=== PATIENT | female | born 1940 | race Caucasian/White ===

== ENCOUNTER 2017-09-01 07:40 | Day surgery (SDC) | payer OTHER ==
[~2017-09-01] VITALS: Ht 162.6 cm; Wt 85.3 kg
[~2017-09-01 07:40] MED LIST: /WARF25TA; /WARF2TA PO; ACETAMINOPHEN 325 MG TAB PO PRN; ALLE25CA; AMLO5TAB2 PO; ASPIRIN PO; BENA25CA PO; BISAC5TA PO; BSS with VANC/TOB/EPI for EYE CASES IR ONE; BYST5TAB2 PO; CALCTAB93 PO; CLIN150C PO; COSO1SOL3 OU; CYCLOPENTOLATE 2% OPHTH SOLN 2ML BTL OS ONE; DIGO0.12 PO; DILTIAZEM PO; DORZOLAMIDE TIMOLOL OU; DOXAZOSIN PO; HYDR25TA6; HYDROCHLORTHIAZIDE; JANT1TAB PO; KEFL500C; LASI40TA PO; LIDOCAINE 3.5 % 1ML OPHTH TOPICAL GEL OU ONE; LISI40TA; LUMI0.01 OU; MAG400TA PO; METO1TAB32 PO; METOPROLOL PO; MOM30SS PO; OFLOXACIN 0.3 % (OCUFLOX) OPTH SOL 5ML OS ONE; PERC7.5T12 PO; PHENYLEPHRINE 2.5% OPHTH SOL 2ML OS ONE; PROPARACAINE 0.5% OPHTH SOL 15ML OS PRN; SENN8.6T5; SENN8.6T7 PO; SPIR25TA2 PO; TENO25TA; TORS10TA3 PO; TORS20TA2 PO; TRIA1OI EXT; TROPICAMIDE 1% OPHTH SOLN 2ML OS ONE; TYLE325T5 PO; VICO5TAB; VICODIN; [UNRECOGNIZED DRUG - MIXTURE] PO
[2017-09-01] MEDS ORDERED: LR 1,000 ML IV ONE (08:00)
[2017-09-01] MEDS ORDERED: LIDOCAINE 1% SDV 5 ML VIAL As Ordered ONE (08:24)
[2017-09-01] MEDS ORDERED: POVIDONE-IODINE 5% OPHTH PREP SOL 30ML As Ordered ONE (08:24)
[2017-09-01] MEDS ORDERED: ACETYLCHOLINE OPHTH SOLN 1% 2ML (MIOCHOL-E) As Ordered ONE (08:24)
[2017-09-01] MEDS ORDERED: CEFUROXIME 1MG/0.1ML INTRACAMERAL INJ As Ordered ONE (08:24)
[2017-09-01] MEDS ORDERED: HEALON DUET (HEALON 10MG/ML 0.55ML & HEALON ENDOCOAT 30MG/ML 0.85ML) As Ordered ONE (08:25)
[2017-09-01] MEDS ORDERED: OMEP40CA2 PO (08:28)
[2017-09-01 08:47] LABS: INR 1.23
[2017-09-01] MEDS ORDERED: MIDAZOLAM INJ 2 MG/2 ML VIAL (J2250) As Ordered ONE (08:49)
[2017-09-01] MEDS ORDERED: fentaNYL 100 MCG/2 ML INJECTION (J3010) As Ordered ONE (08:49)
[2017-09-01 09:20] VITALS: BP 141/78
[2017-09-01] MEDS ORDERED: AcetaZOLAMIDE 500 MG ER CAP PO ONE (09:30)
[2017-09-01] MEDS ORDERED: ONDANSETRON 4MG/2ML VIAL (J2405) IV PRN (09:30)
[2017-09-01] MEDS ORDERED: LR 1,000 ML IV SCH (09:30)
[2017-09-01] MEDS ORDERED: KETOROLAC 0.5% OPHTH SOLN OS ONE (09:30)
[2017-09-01] MEDS ORDERED: TRIMETHOBENZAMIDE 300 MG CAP PO PRN (09:30)
--- NOTE | 2017-09-01 16:42 | RO ---
DATE OF PROCEDURE: 09/01/2017 PREPROCEDURE DIAGNOSIS: Glaucoma, miosis and cataract left eye. POSTPROCEDURE DIAGNOSIS: Glaucoma, miosis and cataract left eye. PROCEDURE: Phacoemulsification with intraocular lens implantation, placement of Malyugin ring, endocyclophotocoagulation and placement of the Glaukos iStent, GTS 100L Intraocular lens used was Hoya power 18 diopters. SURGEON: Dr. Ayush Marr REPAIRER HAIRSPRING: None. ANESTHESIA: COMPLICATIONS: None. DESCRIPTION OF PROCEDURE: The patient was brought to the operating room, laid in supine position, and the eye was prepped and draped in a sterile fashion for ophthalmic surgery and a lid speculum was placed. A sideport incision was made and EndoCoat was injected into the anterior chamber. This was followed by a temporal clear corneal incision with a 2.5 mm keratome, followed by insertion of the 7 mm Malyugin ring to dilate the pupil. After this was done, capsulorrhexis was done followed by hydrodissection. Phacoemulsification was done in a divided and conquer method within the capsular bag followed by aspiration of the cortex. Healon was then placed in the capsular bag and intraocular lens inserted. Healon was then placed in the ciliary sulcus to visualize the ciliary processes on the video screen with the help of the EndoProbe. Endocyclophotocoagulation was then carried out for 280 degrees at 0.25 milliwatts with good results noted on the video screen. Healon was then placed in the anterior chamber to visualize the inferonasal trabecular meshwork. With the patient's head turned away from the surgeon under high mag, with the help of the Gonio lens, the Glaukos iStent was then inserted with good blood reflux so as to obliterate the view, but it seemed like it was in good position. Excess viscoelastic was aspirated with the note the patient has a history of being on Coumadin. Wound was hydrated. Moxifloxacin was given intracamerally. Lid speculum removed. The patient was returned to the recovery room in stable condition. Addendum: After the placement of the intraocular lens, the Malyugin ring was removed.
== END 2017-09-01 09:45 | disposition home or self-care (01) ==
LOC: M SDC 07:40
PROVIDERS: ATTEND Ophthalmology
DX: H25.9 Unspecified age-related cataract (principal); H57.03 Miosis; H40.812 Glaucoma with increased episcleral venous pressure, left eye; I48.91 Unspecified atrial fibrillation; I10 Essential (primary) hypertension; G47.30 Sleep apnea, unspecified; Z79.01 Long term (current) use of anticoagulants; Z79.899 Other long term (current) drug therapy
CPT/HCPCS: 36415; 66183; 66711; 66982; 85610; C1783; J2250; J3010; V2632

== ENCOUNTER 2018-12-03 15:26 | Emergency (ER) | payer MEDICARE, OTHER ==
[~2018-12-03] VITALS: Ht 160 cm; Wt 91.8 kg
[~2018-12-03 15:26] MED LIST changes: -ACETAMINOPHEN 325 MG TAB PO PRN; -AMLO5TAB2 PO; +AMLO5TAB6 PO; -BSS with VANC/TOB/EPI for EYE CASES IR ONE; -CYCLOPENTOLATE 2% OPHTH SOLN 2ML BTL OS ONE; -LIDOCAINE 3.5 % 1ML OPHTH TOPICAL GEL OU ONE; -OFLOXACIN 0.3 % (OCUFLOX) OPTH SOL 5ML OS ONE; +OMEP40CA2 PO; -PHENYLEPHRINE 2.5% OPHTH SOL 2ML OS ONE; -PROPARACAINE 0.5% OPHTH SOL 15ML OS PRN; +SPIR-10 PO; -SPIR25TA2 PO; -TROPICAMIDE 1% OPHTH SOLN 2ML OS ONE
[2018-12-03] MEDS ORDERED: ACUL0.5S OS (15:51)
[2018-12-03] MEDS ORDERED: OMEP40CA2 PO (15:51)
[2018-12-03] MEDS ORDERED: POTA1TAB23 PO (15:51)
[2018-12-03] MEDS ORDERED: VITA2000 PO (15:51)
[2018-12-03] MEDS ORDERED: METO1TAB87 PO (15:51)
[2018-12-03] MEDS ORDERED: LEVO25TA5 PO (15:51)
[2018-12-03] MEDS ORDERED: XARE15TA PO (15:51)
[2018-12-03] MEDS ORDERED: COSO1SOL2 (15:51)
[2018-12-03] MEDS ORDERED: TORS10TA3 PO (15:51)
[2018-12-03 16:07] LABS: BASO # 0.1 10^3/uL (0.0-0.2); BASO % 0.6 % (0.0-1.0); EOS # 0.2 10^3/uL (0.0-0.50); HEMATOCRIT 41.6 % (36.0-47.0); HEMOGLOBIN 13.7 g/dl (12.0-15.5); LYMPH # 1.5 10^3/uL (1.5-4.5); LYMPH % 16.6 % (24.0-44.0); MEAN CORPUSCULAR HEMOGLOBIN 31.5 pg (27.0-33.0); MEAN CORPUSCULAR HGB CONC 32.9 g/dl (32.0-36.5); MEAN CORPUSCULAR VOLUME 95.6 fl (80.0-96.0); MONO # 0.7 10^3/uL (0.0-0.8); MONO % 8.2 % (0.0-5.0); NEUTROPHILS # 6.4 10^3/uL (1.8-7.7); NEUTROPHILS % 72.3 % (36.0-66.0); PLATELET COUNT, AUTOMATED 224 10^3/uL (150-450); RED BLOOD COUNT 4.35 10^6/uL (4.00-5.40); WHITE BLOOD COUNT 8.9 10^3/uL (4.0-10.0)
[2018-12-03 16:14] LABS: INR 1.11; PROTHROMBIN TIME 14.5 SECONDS (12.1-14.4)
--- NOTE | 2018-12-03 16:15 | REP ---
Chest one-view HISTORY: chest pain Comparison: 10/15/2015 The lungs are clear. The heart is normal in size. The pulmonary vasculature is normal in appearance. Impression: No acute disease. Electronically Signed by Shashi Mares MD 12/03/2018 04:06 P
[2018-12-03 16:28] LABS: BLOOD UREA NITROGEN 25 MG/DL (7-18); CALCIUM LEVEL 9.3 MG/DL (8.8-10.2); CARBON DIOXIDE LEVEL 21 MEQ/L (21-32); CHLORIDE LEVEL 102 MEQ/L (98-107); CPK CREATINE PHOSPHOKINASE 146 U/L (26-192); CREATININE FOR GFR 1.51 MG/DL (0.55-1.30); GLOMERULAR FILTRATION RATE 35.4 (>39); GLUCOSE, FASTING 95 MG/DL (70-100); MB/CK RELATIVE INDEX 1.03 (< OR =4); NT-PRO BNP 9777 PG/ML (<450); POTASSIUM SERUM 4.3 MEQ/L (3.5-5.1); SODIUM LEVEL 134 MEQ/L (136-145); TROPONIN I < 0.02 NG/ML (< 0.10)
[2018-12-03] MEDS ORDERED: NS 500 ML IV ONE (16:45)
[2018-12-03 17:39] LABS: INFLUENZA A AMPLIFICATION NEGATIVE (NEGATIVE); INFLUENZA B AMPLIFICATION NEGATIVE (NEGATIVE)
[2018-12-03 20:31] LABS: ABG BASE EXCESS -2.4 (-2.0-2.0); ABG HCO3 21.2 MEQ/L (22.0-26.0); ABG O2 SATURATION 97.8 % (95.0-99.0); ABG PARTIAL PRESSURE CO2 33.3 mmHg (35.0-45.0); ABG PARTIAL PRESSURE O2 97.7 mmHg (75.0-100.0); ABG STANDARD HCO3 22.5 MEQ/L (22.0-26.0); ABG TOTAL CO2 22.2 MEQ/L (23.0-31.0); ABG pH (ARTERIAL) 7.422 UNITS (7.350-7.450)
[2018-12-03] MEDS ORDERED: ATIV1TAB10 PO ×2 (20:55→21:00)
[2018-12-03 21:31] VITALS: BP 140/73
--- NOTE | 2018-12-04 13:57 | ECGEPIP ---
Stationary ECG Study [facility] - ED Test Date: 2018-12-03 Pat Name: AYAN KOVACS Department: Room: - Gender: F Internal Control Specialist: TC : 1940 Requested By: YVES Aden Order Number: [id number] Reading MD: Jackeline Gilmore Measurements Intervals [place] Rate: 73 P: [place]: 0 QRS: -21 QRSD: 146 T: 63 QT: 413 QTc: 456 Interpretive Statements ATRIAL FIBRILLATION LEFT BUNDLE BRANCH BLOCK Electronically Signed On 12-04-2018 13:56:39 EST by Jackeline Gilmore
== END 2018-12-03 21:50 | disposition home or self-care (01) ==
LOC: M ED 15:26 → CANBEDREQ 21:05 → M ED 21:50
DX: I50.9 Heart failure, unspecified (principal); R06.02 Shortness of breath; I48.91 Unspecified atrial fibrillation; I44.7 Left bundle-branch block, unspecified; G47.30 Sleep apnea, unspecified; M19.90 Unspecified osteoarthritis, unspecified site; Z79.899 Other long term (current) drug therapy

== ENCOUNTER → 2019-04-30 | Outpatient (CLI) | payer MEDICARE ==
[~2019-04-30] MED LIST changes: -/WARF25TA; -/WARF2TA PO; +ACUL0.5S OS; +ATIV1TAB10 PO; +COSO1SOL2; +COUM1TAB16 PO; +COUM1TAB18; +LEVO25TA5 PO; +METO1TAB87 PO; +POTA1TAB23 PO; +VITA2000 PO; +XARE15TA PO
[2019-04-30 14:14] LABS: CALCIUM LEVEL 9.8 MG/DL (8.8-10.2); CREATININE FOR GFR 1.87 MG/DL (0.55-1.30); GLOMERULAR FILTRATION RATE 27.6 (>39); POTASSIUM SERUM 4.4 MEQ/L (3.5-5.1)
== END ==
LOC: M SMT 11:49
PROVIDERS: ATTEND Internal Medicine Cardiovascular Disease
DX: I10 Essential (primary) hypertension (principal); I48.2 Chronic atrial fibrillation

== ENCOUNTER 2019-06-03 10:51 | Inpatient (IN) | payer MEDICARE ==
[~2019-06-03] VITALS: Ht 160 cm; Wt 83.0 kg
[~2019-06-03 10:51] MED LIST changes: -COSO1SOL2; +COSO1SOL2 OU
[2019-06-03] MEDS ORDERED: HYDR10TAB PO (11:15)
[2019-06-03 12:48] LABS: BASO # 0.1 10^3/uL (0.0-0.2); BASO % 0.8 % (0.0-1.0); EOS % 8.4 % (0.0-3.0); HEMATOCRIT 43.8 % (36.0-47.0); HEMOGLOBIN 14.9 g/dl (12.0-15.5); LYMPH # 0.9 10^3/uL (1.5-4.5); LYMPH % 7.2 % (24.0-44.0); MEAN CORPUSCULAR HEMOGLOBIN 32.3 pg (27.0-33.0); MEAN CORPUSCULAR VOLUME 94.8 fl (80.0-96.0); MONO % 8.4 % (0.0-5.0); NEUTROPHILS # 9.1 10^3/uL (1.8-7.7); NEUTROPHILS % 73.9 % (36.0-66.0); PLATELET COUNT, AUTOMATED 357 10^3/uL (150-450); RED BLOOD COUNT 4.62 10^6/uL (4.00-5.40); WHITE BLOOD COUNT 12.3 10^3/uL (4.0-10.0)
[2019-06-03] MEDS ORDERED: METO1TAB87 PO (12:48)
[2019-06-03] MEDS ORDERED: TORS10TA3 PO (12:48)
[2019-06-03 13:21] LABS: CREATININE,RANDOM URINE 44.4 MG/DL
[2019-06-03 14:12] LABS: ALBUMIN 3.1 GM/DL (3.2-5.2); BILIRUBIN,DIRECT 0.4 MG/DL (0.0-0.2); BILIRUBIN,TOTAL 1.1 MG/DL (0.2-1.0); CREATININE FOR GFR 1.85 MG/DL (0.55-1.30); FREE T4 1.58 NG/DL (0.76-1.46); THYROID STIMULATING HORMONE 2.15 uIU/ML (0.358-3.740); TOTAL PROTEIN 7.3 GM/DL (6.4-8.2)
[2019-06-03 14:52] LABS: PTH INTACT 9.8 PG/ML (18.5-88.0); TOTAL 25(OH) VITAMIN D 51.4 NG/ML (30.0-100.0)
--- NOTE | 2019-06-03 19:26 | ECGEPIP ---
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
--- NOTE | 2019-06-03 19:33 | ECGEPIP ---
[facility] - ED Test Date: 2019-06-03 Pat Name: AYAN KOVACS Department: Room: - Gender: Female Head Of Operation And Logistics: : 1940 Requested By: KATHERYN LEES Order Number: [id number] Reading MD: Jackeline Gilmore Measurements Intervals [place] Rate: 74 P: [place]: -1 QRS: QRSD: 168 T: 114 QT: 434 QTc: 482 Interpretive Statements ATRIAL FIBRILLATION MARKED LEFT AXIS DEVIATION LEFT BUNDLE BRANCH BLOCK SIMILAR 11:15 Electronically Signed on 06-03-2019 19:32:50 EDT by Jackeline Gilmore
[2019-06-03] MEDS: METOPROLOL TART 25 MG TABLET PO SCH (21:00)
[2019-06-03] MEDS ORDERED: NS 600 ML IV SCH (23:30)
--- NOTE | 2019-06-04 01:39 | HPEPDOC ---
General Date of Admission Jun 03, 2019 at 23:22 Date of Service: Jun 04, 2019 Chief Complaint The patient is a 78-year-old female admitted with a reason for visit of Hypercalcemia. History of Present Illness 78-year-old female with past medical history of hypertension, hypothyroidism, atrial fibrillation on xarelto, osteoporosis, and diastolic congestive heart failure was sent from Dr. Cordova's office due to elevated serum calcium and low serum sodium levels. The patient also endorses feeling generalized weakness and malaise over the last 1 week. She denies any significant weight loss, but does e ndorse a decreased appetite. She denies any complaints of fevers, chills, chest pain, palpitations, abdominal pain, or any nausea/vomiting/diarrhea. She reports starting hydralazine as a new medication one month ago, but otherwise denies any other changes to her medications. Home Medications Scheduled Cholecalciferol (Vitamin D3) (Vitamin D3) 2,000 Unit Cap, 1 CAP PO DAILY, (Reported) Dorzolamide/Timolol/Pf (Cosopt Pf Eye Drops) 1 Belkis Belkis, 1 DROP OU BID, (Reported) Hydralazine HCl (Hydralazine HCl) 10 Mg Tablet, 1 TAB PO TID, (Reported) Levothyroxine Sodium (Levothyroxine Sodium) 25 Mcg Tab, 1 TAB PO DAILY, (Reported) Metoprolol Tartrate (Metoprolol Tartrate) 25 Mg Tab, 50 MG PO QAM, (Reported) Metoprolol Tartrate (Metoprolol Tartrate) 25 Mg Tablet, 25 MG PO QPM, (Reported) Omeprazole (Omeprazole) 40 Mg Cap, 40 MG PO DAILY, (Reported) Potassium Chloride (Potassium Chloride) 10 Meq Tab, 10 MEQ PO BID, (Reported) Rivaroxaban (Xarelto) 15 Mg Tab, 15 MG PO DAILY, (Reported) Spironolactone (Spironolactone) 25 Mg Tab, 25 MG PO DAILY, (Reported) Torsemide (Torsemide) 10 Mg Tab, 20 MG PO QAM, (Reported) Torsemide (Torsemide) 10 Mg Tablet, 10 MG PO QPM, (Reported) Allergies Coded Allergies: No Known Allergies (Unverified , 06/03/19) Past Medical History Medical History As noted in HPI. Social History * Smoker: Denies Alcohol: occationally Drugs: denies Functionally independent, lives with her . Review of Systems Other systems 10 point review of systems negative unless otherwise specified in HPI. Physical Examination General Exam: Positive: Alert, Cooperative, No Acute Distress ENT Exam: Positive: Atraumatic; Negative: Mucous membr. moist/pink (dry mucous membranes) Neck Exam: Negative: JVD Chest Exam: Positive: Diminished Heart Exam: Positive: Rate Normal, Normal S1, Normal S2 Abdomen Exam: Positive: Soft; Negative: Tenderness Extremity Exam: Negative: Tenderness, Swelling Psych Exam: Positive: Oriented x 3 Vital Signs Vital Signs Date Time Temp Pulse Resp B/P (MAP) Pulse Ox O2 Delivery O2 Flow Rate FiO2 06/04/19 00:21 88 96 06/03/19 23:01 18 169/66 (100) Room Air 06/03/19 10:52 97.7 Laboratory Data Labs 24H Laboratory Tests 2 06/03/19 12:32: Immature Granulocyte % (Auto) 1.3, White Blood Count 12.3H, Red Blood Count 4.62, Hemoglobin 14.9, Hematocrit 43.8, Mean Corpuscular Volume 94.8, Mean Corpuscular Hemoglobin 32.3, Mean Corpuscular Hemoglobin Concent 34.0, Red Cell Distribution Width 13.2, Platelet Count 357, Neutrophils (%) (Auto) 73.9H, Lymphocytes (%) (Auto) 7.2L, Monocytes (%) (Auto) 8.4H, Eosinophils (%) (Auto) 8.4H, Basophils (%) (Auto) 0.8, Neutrophils # (Auto) 9.1H, Lymphocytes # (Auto) 0.9L, Monocytes # (Auto) 1.0H, Eosinophils # (Auto) 1.0H, Basophils # (Auto) 0.1, Nucleated Red Blood Cells % (auto) 0.0, Urine Random Osmolality 254L, Urine Random Creatinine 44.4, Urine Random Sodium 38, Anion Gap 10, Glomerular F iltration Rate 28.0L, Osmolality 276L, Calcium Level 12.0H, Aspartate Amino Transf (AST/SGOT) 12, Alanine Aminotransferase (ALT/SGPT) 20, Alkaline Phosphatase 300H, Total Bilirubin 1.1H, Direct Bilirubin 0.4H, Ammonia 27, Total Protein 7.3, Albumin 3.1L, Albumin/Globulin Ratio 0.74L, 25-Hydroxy Vitamin D Total 51.4, Thyroid Stimulating Hormone (TSH) 2.150, Free Thyroxine 1.58H, Parathyroid Hormone (Intact) 9.8L CBC/BMP Laboratory Tests 06/03/19 12:32 Red Blood Count 4.62, Mean Corpuscular Volume 94.8, Mean Corpuscular Hemoglobin 32.3, Mean Corpuscular Hemoglobin Concent 34.0, Red Cell Distribution Width 13.2, Neutrophils (%) (Auto) 73.9 H, Lymphocytes (%) (Auto) 7.2 L, Monocytes (%) (Auto) 8.4 H, Eosinophils (%) (Auto) 8.4 H, Basophils (%) (Auto) 0.8, Neutrophils # (Auto) 9.1 H, Lymphocytes # (Auto) 0.9 L, Monocytes # (Auto) 1.0 H, Eosinophils # (Auto) 1.0 H, Basophils # (Auto) 0.1 Plan / VTE VTE Prophylaxis Ordered?: Yes Plan Plan Hypercalcemia, Hypovolemic Hyponatremia PTH level noted to be low, PTHrp, Vit D 1,25, and Vitamin D, 25 Hydroxy, SPEP/UPEP, Light Chain assay levels ordered--Possibly 2/2 underlying malignancy? We will order a CT of the Chest to r/o any lesions as this can certainly cause PTHrp induced hypercalcemia, and SIADH induced Hyponatremia We will order urine lytes to workup hyponatremia Diuretics held due to dehydrated appearance, Gentle IV fluid hydration ordered We will follow-up with BMP in the a.m. Chronic kidney disease stage III/IV Serum Cr at baseline Cont to monitor History of atrial fibrillation Cont Xarelto Hypertension Blood pressure medications held secondary to above History of diastolic congestive heart failure Patient appears to be clinically dehydrated, we'll hold diuretic therapy and judiciously hydrate GERD Continue PPI Hypothyroidism Continue levothyroxine DVT On Xarelto ADAMARIS SERRANO MD Jun 04, 2019 01:39
[2019-06-04] MEDS: LEVOTHYROXINE 25MCG TABLET (0.025MG) PO SCH (06:33)
[2019-06-04 07:08] LABS: HEMATOCRIT 41.4 % (36.0-47.0); HEMOGLOBIN 14.2 g/dl (12.0-15.5); MEAN CORPUSCULAR HEMOGLOBIN 32.1 pg (27.0-33.0); MEAN CORPUSCULAR HGB CONC 34.3 g/dl (32.0-36.5); MEAN CORPUSCULAR VOLUME 93.7 fl (80.0-96.0); PLATELET COUNT, AUTOMATED 380 10^3/uL (150-450); RED BLOOD COUNT 4.42 10^6/uL (4.00-5.40); WHITE BLOOD COUNT 12.7 10^3/uL (4.0-10.0)
[2019-06-04 07:34] LABS: ALBUMIN 2.9 GM/DL (3.2-5.2); CALCIUM LEVEL 11.2 MG/DL (8.8-10.2); CREATININE FOR GFR 1.59 MG/DL (0.55-1.30); GLOMERULAR FILTRATION RATE 33.3 (>39); MAGNESIUM LEVEL 2.1 MG/DL (1.8-2.4); POTASSIUM SERUM 3.9 MEQ/L (3.5-5.1); TOTAL PROTEIN 6.9 GM/DL (6.4-8.2)
[2019-06-04] MEDS: RIVAROXABAN 15 MG TAB (XARELTO) PO SCH (08:52)
[2019-06-04] MEDS: METOPROLOL TART 50 MG TAB PO SCH (08:52)
[2019-06-04] MEDS: ACETAMINOPHEN TAB 650MG DOSE (2X325MG) PO PRN (08:53)
[2019-06-04] MEDS: OMEPRAZOLE 20 MG CAP PO SCH (08:53)
[2019-06-04] MEDS: VITAMIN D 1,000 INTERNATIONAL UNITS TABLET PO SCH (08:53)
[2019-06-04] MEDS: CALCITONIN SALMON (MIACALCIN) 400INTERNATIONAL UNITS/2ML INJ (J0630) SQ SCH ×2 (09:52→20:36)
[2019-06-04] MEDS ORDERED: ZOLEDRONIC ACID 3 MG in D5W 100 ML IV ONE (10:00)
[2019-06-04 11:05] VITALS: BP 142/66
[2019-06-04 16:01] VITALS: BP 131/61
--- NOTE | 2019-06-04 18:30 | IPNPDOC ---
Date Seen The patient was seen on 06/04/19. Progress Note SUBJECTIVE: Despite ivfluids, pt's calcium remains elevated. calcitonin and zolendorate. She admits to Loss of appetite, fatigue, weakness, and back pain, but denies Nausea, vomiting, Constipation, abdominal pain, Increased thirst, frequent urination, Confusion, disorientation, difficulty thinking, Headaches, or Depression.UPEP and SPEP still pending. ionized calcium is improving. Tele unre markable. OBJECTIVE: PHYSICAL EXAMINATION: VITALS PLS SEE BELOW General Exam: Positive: Alert, Cooperative, No Acute Distress ENT Exam: Positive: Atraumatic; Negative: Mucous membr. moist/pink (dry mucous membranes) Neck Exam: Negative: JVD Chest Exam: Positive: Diminished Heart Exam: Positive: Rate Normal, Normal S1, Normal S2 Abdomen Exam: Positive: Soft; Negative: Tenderness Extremity Exam: Negative: Tenderness, Swelling Psych Exam: Positive: Oriented x 3 LABORATORY DATA, IMAGING STUDIES, MICROBIOLOGY:PLS SEE BELOW ASSESSMENT AND PLAN: Hypercalcemia, Hypovolemic Hyponatremia She admits to Loss of appetite, fatigue, weakness, and back pain, but denies Nausea, vomiting, Constipation, abdominal pain, Increased thirst, frequent urination, Confusion, disorientation, difficulty thinking, Headaches, or Depression.UPEP and SPEP still pending. ionized calcium is improving. Tele unremarkable. PTH level noted to be low, PTHrp, Vit D 1,25, and Vitamin D, 25 Hydroxy, SPEP/U PEP, Light Chain assay levels ordered--Possibly 2/2 underlying malignancy? reviewed CT of the Chest to r/o any lesions as this can certainly cause PTHrp induced hypercalcemia, and SIADH induced Hyponatremia ordered urine lytes to workup hyponatremia Diuretics held due to dehydrated appearance, Gentle IV fluid hydration ordered serial ionized calcium, bmp. Chronic kidney disease stage III/IV Serum Cr at baseline Cont to monitor History of atrial fibrillation Cont Xarelto Hypertension Blood pressure medications held secondary to above History of diastolic congestive heart failure Patient appears to be clinically dehydrated, we'll hold diuretic therapy and judiciously hydrate GERD Continue PPI Hypothyroidism Continue levothyroxine DVT On Xarelto VS, I&O, 24H, Fishbone Vital Signs/I&O Vital Signs Date Time Temp Pulse Resp B/P (MAP) Pulse Ox O2 Delivery O2 Flow Rate FiO2 06/04/19 05:06 83 95 06/04/19 05:00 18 130/71 (90) 06/03/19 23:01 Room Air 06/03/19 10:52 97.7 Laboratory Data 24H LABS Laboratory Tests 2 06/03/19 12:32: Immature Granulocyte % (Auto) 1.3, White Blood Count 12.3H, Red Blood Count 4.62, Hemoglobin 14.9, Hematocrit 43.8, Mean Corpuscular Volume 94.8, Mean Corpuscular Hemoglobin 32.3, Mean Corpuscular Hemoglobin Concent 34.0, Red Cell Distribution Width 13.2, Platelet Count 357, Neutrophils (%) (Auto) 73.9H, Lymp hocytes (%) (Auto) 7.2L, Monocytes (%) (Auto) 8.4H, Eosinophils (%) (Auto) 8.4H, Basophils (%) (Auto) 0.8, Neutrophils # (Auto) 9.1H, Lymphocytes # (Auto) 0.9L, Monocytes # (Auto) 1.0H, Eosinophils # (Auto) 1.0H, Basophils # (Auto) 0.1, Nucleated Red Blood Cells % (auto) 0.0, Urine Random Osmolality 254L, Urine Random Creatinine 44.4, Urine Random Sodium 38, Anion Gap 10, Glomerular Filtration Rate 28.0L, Osmolality 276L, Calcium Level 12.0H, Aspartate Amino Transf (AST/SGOT) 12, Alanine Aminotransferase (ALT/SGPT) 20, Alkaline Phosphatase 300H, Total Bilirubin 1.1H, Direct Bilirubin 0.4H, Ammonia 27, Total Protein 7.3, Albumin 3.1L, Albumin/Globulin Ratio 0.74L, 25-Hydroxy Vitamin D Total 51.4, Thyroid Stimulating Hormone (TSH) 2.150, Free Thyroxine 1.58H, Parathyroid Hormone (Intact) 9.8L 06/04/19 06:00: 06/04/19 06:38: Nucleated Red Blood Cells % (auto) 0.0, Anion Gap 11, Glomerular Filtration Rate 33.3L, Calcium Level 11.2H, Aspartate Amino Transf (AST/SGOT) 13, Alanine Aminotransferase (ALT/SGPT) 17, Alkaline Phosphatase 268H, Total Bilirubin 1.0, Total Protein 6.9, Albumin 2.9L, Albumin/Globulin Ratio 0.73L, Blood Urea Nitrogen 27H, Creatinine 1.59H, Sodium Level 128L, Potassium Level 3.9, Chloride Level 91L, Carbon Dioxide Level 26, Magnesium Level 2.1, Total Protein (PEP) 7.0 CBC/BMP Laboratory Tests 06/03/19 12:32 Red Blood Count 4.62, Mean Corpuscular Volume 94.8, Mean Corpuscular Hemoglobin 32.3, Mean Corpuscular Hemoglobin Concent 34.0, Red Cell Distribution Width 13.2, Neutrophils (%) (Auto) 73.9 H, Lymphocytes (%) (Auto) 7.2 L, Monocytes (%) (Auto) 8.4 H, Eosinophils (%) (Auto) 8.4 H, Basophils (%) (Auto) 0.8, Neutr ophils # (Auto) 9.1 H, Lymphocytes # (Auto) 0.9 L, Monocytes # (Auto) 1.0 H, Eosinophils # (Auto) 1.0 H, Basophils # (Auto) 0.1 06/04/19 06:38 Red Blood Count 4.42, Mean Corpuscular Volume 93.7, Mean Corpuscular Hemoglobin 32.1, Mean Corpuscular Hemoglobin Concent 34.3, Red Cell Distribution Width 13.2, Calcium Level 11.2 H, Aspartate Amino Transf (AST/SGOT) 13, Alanine Pittman otransferase (ALT/SGPT) 17, Alkaline Phosphatase 268 H, Total Bilirubin 1.0, Total Protein 6.9, Albumin 2.9 L ANDRES BURNHAM MD Jun 04, 2019 08:22
[2019-06-04 20:00] VITALS: BP 150/89
[2019-06-04] MEDS: METOPROLOL TART 25 MG TABLET PO SCH (20:33)
[2019-06-04 22:00] VITALS: BP 138/72
[2019-06-04] MEDS: ONDANSETRON 4MG/2ML VIAL (J2405) IV PRN (22:17)
[2019-06-05] VITALS: BP 136/91
[2019-06-05] MEDS: ONDANSETRON 4MG/2ML VIAL (J2405) IV PRN ×3 (03:48→19:56)
[2019-06-05 04:00] VITALS: BP 146/67
[2019-06-05 05:07] LABS: IONIZED CALCIUM 5.1 MG/DL (4.5-5.3)
[2019-06-05 06:24] LABS: HEMATOCRIT 42.7 % (36.0-47.0); HEMOGLOBIN 14.3 g/dl (12.0-15.5); MEAN CORPUSCULAR HGB CONC 33.5 g/dl (32.0-36.5); MEAN CORPUSCULAR VOLUME 95.5 fl (80.0-96.0); PLATELET COUNT, AUTOMATED 399 10^3/uL (150-450); RED BLOOD COUNT 4.47 10^6/uL (4.00-5.40); WHITE BLOOD COUNT 14.6 10^3/uL (4.0-10.0)
[2019-06-05] MEDS: LEVOTHYROXINE 25MCG TABLET (0.025MG) PO SCH (06:27)
[2019-06-05 06:51] LABS: CALCIUM LEVEL 10.6 MG/DL (8.8-10.2); CREATININE FOR GFR 1.38 MG/DL (0.55-1.30); GLOMERULAR FILTRATION RATE 39.3 (>39); POTASSIUM SERUM 3.8 MEQ/L (3.5-5.1)
[2019-06-05 08:18] VITALS: BP 135/82
[2019-06-05] MEDS: RIVAROXABAN 15 MG TAB (XARELTO) PO SCH (08:48)
[2019-06-05] MEDS: METOPROLOL TART 50 MG TAB PO SCH (08:56)
[2019-06-05] MEDS: CALCITONIN SALMON (MIACALCIN) 400INTERNATIONAL UNITS/2ML INJ (J0630) SQ SCH ×2 (08:57→21:59)
[2019-06-05] MEDS: VITAMIN D 1,000 INTERNATIONAL UNITS TABLET PO SCH (08:57)
[2019-06-05] MEDS: OMEPRAZOLE 20 MG CAP PO SCH (08:57)
--- NOTE | 2019-06-05 09:47 | REP ---
CT chest without contrast: History: Hypercalcemia. No comparison chest CT. Comparison is made with chest x-ray from December 03, 2018. Findings: Preliminary digital section housekeeper radiograph demonstrates cardiac enlargement. The lung ho are well inflated and no infiltrate is seen. There is a granulomatous calcification in the right base laterally. No significant pulmonary nodule or mass lesion is observed. There is no evidence of pleural or pericardial effusion. There are granulomatous lymph node calcifications in the hilar regions bilaterally. Vascular calcification is noted. Scattered normal sized mediastinal lymph nodes are seen. Cardiac enlargement is observed on axial images. No adrenal lesion is seen. There are two accessory splenules in the left upper quadrant. There are several calcifications in the body of the pancreas and there is peripancreatic edema and intrapancreatic ill-defined decreased density consistent with pancreatitis. The body and tail of the pancreas are unremarkable. There are calcific densities in the gallbladder consistent with stones. Impression: Cardiomegaly. Old granulomatous changes. Otherwise no active disease in the chest. Incidental note is made of abnormality in the pancreatic head with calcifications, and intrapancreatic and peripancreatic edema pattern suggestive of chronic and/or acute pancreatitis. Pancreatic protocol CT study should be considered. Electronically Signed by Bahman Campbell MD 06/05/2019 12:03 P
[2019-06-05 10:22] LABS: SODIUM, URINE 17 MEQ/L
[2019-06-05 10:26] LABS: URINE TOTAL PROTEIN 30.8 MG/DL (0-12)
[2019-06-05 11:20] LABS: OSMOLALITY URINE 327 MOSM/KG (500-800)
[2019-06-05 11:37] VITALS: BP 132/63
--- NOTE | 2019-06-05 12:37 | IPNPDOC ---
Date Seen The patient was seen on 06/05/19. Progress Note SUBJECTIVE: Calcium has normalized s/p calcitonin and zolendorate. She admits to Loss of appetite, fatigue, weakness, and back pain, but denies Nausea, vomiting, Constipation, Increased thirst, frequent urination, Confusion, disorientation, difficulty thinking, Headaches, or Depression.UPEP and SPEP still pending. ionized calcium is improving. Tele unremarkable. CT chest: granulomatous disease ? chronic pancreatitis with calcification. She c/o epigastric abd discomfortbut tolerating her diet. OBJECTIVE: PHYSICAL EXAMINATION: VITALS PLS SEE BELOW General Exam: Positive: Alert, Cooperative, No Acute Distress ENT Exam: Positive: Atraumatic; Negative: Mucous membr. moist/pink (dry mucous membranes) Neck Exam: Negative: JVD Chest Exam: Positive: Diminished Heart Exam: Positive: Rate Normal, Normal S1, Normal S2 Abdomen Exam: Positive: Soft; (+) bowel sounds. slightly tender in LUQ epigastric area. Extremity Exam: Negative: Tenderness, Swelling Psych Exam: Positive: Oriented x 3 LABORATORY DATA, IMAGING STUDIES, MICROBIOLOGY:PLS SEE BELOW ASSESSMENT AND PLAN: 78-year-old female with past medical history of hypertension, hypothyroidism, atrial fibrillation on xarelto, osteoporosis, and diastolic congestive heart failure was sent from Dr. Cordova's office due to elevated serum calcium and low serum sodium levels. The patient also endorses feeling generalized weakness and malaise over the last 1 week. She denies any significant weight loss, but does endorse a decreased appetite. She denies any complaints of fevers, chills, chest pain, palpitations, abdominal pain, or any nausea/vomiting/diarrhea. She reports starting hydralazine as a new medication one month ago, but otherwise denies any other changes to her medications. Hypercalcemia, Hypovolemic Hyponatremia She admits to Loss of appetite, fatigue, weakness, and back pain, but denies N ausea, vomiting, Constipation, abdominal pain, Increased thirst, frequent urination, Confusion, disorientation, difficulty thinking, Headaches, or Depression.UPEP and SPEP still pending. ionized calcium is improving. Tele unremarkable. PTH level noted to be low, PTHrp, Vit D 1,25, and Vitamin D, 25 Hydroxy, SPEP/UPEP, Light Chain assay levels ordered--Possibly 2/2 underlying malignancy? reviewed CT of the Chest to r/o any lesions as this can certainly cause PTHrp induced hypercalcemia, and SIADH induced Hyponatremia ordered urine lytes to workup hyponatremia Diuretics held due to dehydrated appearance, Gentle IV fluid hydration ordered serial ionized calcium, bmp. improved to normal calcium levels after calcitonin and zolendronate. Abnormal pancreas possible chronic pancreatitis if nausea, vomiting, and worsening abd pain, may need to dc dash diet and change to liquid or npo diet. Chronic kidney disease stage III/IV Serum Cr at baseline Cont to monitor History of atrial fibrillation Cont Xarelto Hypertension Blood pressure medications held secondary to above History of diastolic congestive heart failure Patient appears to be clinically dehydrated, we'll hold diuretic therapy and judiciously hydrate GERD Continue PPI Hypothyroidism Continue levothyroxine VS, I&O, 24H, Fishbone Vital Signs/I&O Vital Signs Date Time Temp Pulse Resp B/P (MAP) Pulse Ox O2 Delivery O2 Flow Rate FiO2 06/05/19 11:37 96.5 73 16 132/63 (86) 97 06/04/19 10:46 Room Air I&O- Last 24 Hours up to 6 AM 06/05/19 06:00 Intake Total 230 ml Output Total 880 ml Balance -650 ml Laboratory Data 24H LABS Laboratory Tests 2 06/04/19 18:00: Whole Blood Ionized Calcium 5.5H 06/04/19 23:55: Whole Blood Ionized Calcium 5.3 06/05/19 05:00: Whole Blood Ionized Calcium 5.1, Anion Gap 11, Glomerular Filtration Rate 39.3, Blood Urea Nitrogen 21H, Creatinine 1.38H, Sodium Level 129L, Potassium Level 3.8, Chloride Level 94L, Carbon Dioxide Level 24, Calcium Level 10.6H 06/05/19 06:00: Nucleated Red Blood Cells % (auto) 0.0 06/05/19 08:15: Urine Random Osmolality 327L, Urine Total Protein mg/dL 30.8H 06/05/19 12:11: Whole Blood Ionized Calcium 5.1 CBC/BMP Laboratory Tests 06/05/19 05:00 Calcium Level 10.6 H 06/05/19 06:00 Red Blood Count 4.47, Mean Corpuscular Volume 95.5, Mean Corpuscular Hemoglobin 32.0, Mean Corpuscular Hemoglobin Concent 33.5, Red Cell Distribution Width 13.2 ANDRES BURNHAM MD Jun 05, 2019 12:35
[2019-06-05 14:11] LABS: SODIUM 24 HOUR URINE 15 MEQ/24HR (40-220); TOTAL VOLUME, URINE 900 ML
[2019-06-05 14:32] VITALS: BP 139/65
[2019-06-05 18:50] LABS: ALBUMIN 2.8 GM/DL (3.2-5.2); BILIRUBIN,DIRECT 0.4 MG/DL (0.0-0.2); BILIRUBIN,TOTAL 0.7 MG/DL (0.2-1.0); TOTAL PROTEIN 7.3 GM/DL (6.4-8.2)
[2019-06-05 22:00] VITALS: BP 116/63
[2019-06-05] MEDS: METOPROLOL TART 25 MG TABLET PO SCH (22:10)
[2019-06-05] MEDS: ACETAMINOPHEN TAB 650MG DOSE (2X325MG) PO PRN (22:18)
[2019-06-06 00:06] LABS: FREE KAPPA LIGHT CHAINS SERUM 69.7 mg/L (3.3-19.4); FREE LAMBDA LIGHT CHAINS SERUM 74.5 mg/L (5.7-26.3); KAPPA/LAMBDA RATIO SERUM 0.94 (0.26-1.65)
[2019-06-06] MEDS: LEVOTHYROXINE 25MCG TABLET (0.025MG) PO SCH (05:42)
[2019-06-06 06:00] VITALS: BP 127/69
[2019-06-06 06:38] LABS: HEMATOCRIT 42.4 % (36.0-47.0); MEAN CORPUSCULAR HEMOGLOBIN 31.5 pg (27.0-33.0); MEAN CORPUSCULAR VOLUME 95.5 fl (80.0-96.0); PLATELET COUNT, AUTOMATED 362 10^3/uL (150-450); RED BLOOD COUNT 4.44 10^6/uL (4.00-5.40)
[2019-06-06 07:04] LABS: CALCIUM LEVEL 10.2 MG/DL (8.8-10.2); CREATININE FOR GFR 1.41 MG/DL (0.55-1.30); GLOMERULAR FILTRATION RATE 38.3 (>39); POTASSIUM SERUM 3.7 MEQ/L (3.5-5.1)
--- NOTE | 2019-06-06 08:21 | IPNPDOC ---
Date Seen The patient was seen on 06/06/19. Progress Note SUBJECTIVE: pt c/o decreased appetite, nausea without vomiting, and abd pain in luq epigastric radiating to back 3/10 achy, intermittent, unchanged by position. CT chest: granulomatous disease, and calcifications in pancreas with possible chronic/acute pancreatitis. Pt denies dyspnea, or pnd. OBJECTIVE: PHYSICAL EXAMINATION: VITALS PLS SEE BELOW General Exam: Positive: Alert, Cooperative, No Acute Distress ENT Exam: Positive: Atraumatic; Negative: Mucous membr. moist/pink (dry mucous membranes) Neck Exam: Negative: JVD Chest Exam: Positive: Diminished Heart Exam: Positive: Rate Normal, Normal S1, Normal S2 Abdomen Exam: Positive: Soft; (+) bowel sounds. slightly tender in LUQ epigastric area. Extremity Exam: Negative: Tenderness, Swelling Psych Exam: Positive: Oriented x 3 LABORATORY DATA, IMAGING STUDIES, MICROBIOLOGY:PLS SEE BELOW ASSESSMENT AND PLAN: 78-year-old female with past medical history of hypertension, hypothyroidism, atrial fibrillation on xarelto, osteoporosis, and diastolic congestive heart mani micheline was sent from Dr. Cordova's office due to elevated serum calcium and low serum sodium levels. The patient also endorses feeling generalized weakness and malaise over the last 1 week. She denies any significant weight loss, but does endorse a decreased appetite. She denies any complaints of fevers, chills, chest pain, palpitations, abdominal pain, or any nausea/vomiting/diarrhea. She reports starting hydralazine as a new medication one month ago, but otherwise denies any other changes to her medications. Hypercalcemia, Hypovolemic Hyponatremia She admits to Loss of appetite, fatigue, weakness, and back pain, but denies Nausea, vomiting, Constipation, abdominal pain, Increased thirst, frequent urination, Confusion, disorientation, difficulty thinking, Headaches, or Depression.UPEP and SPEP still pending. ionized calcium is improving. Tele unremarkable. PTH level noted to be low, PTHrp, Vit D 1,25, and Vitamin D, 25 Hydroxy, SPEP/UPEP, Light Chain assay levels ordered--Possibly 2/2 underlying malignancy? reviewed CT of the Chest to r/o any lesions as this can certainly cause PTHrp induced hypercalcemia, and SIADH induced Hyponatremia ordered urine lytes to workup hyponatremia Diuretics held due to dehydrated appearance, Gentle IV fluid hydration ordered serial ionized calcium, bmp. improved to normal calcium levels after calcitonin and zolendronate. acute on chronic pancreatitis pt c/o decreased appetite, nausea without vomiting, and abd pain in luq epigastric radiating to back 3/10 achy, intermittent, unchanged by position. CT chest: granulomatous disease, and calcifications in pancreas with possible chronic/acute pancreatitis. Pt denies dyspnea, or pnd. with hypercalcemi with improvement after zolendronate and calcitonin us gallbladder today npo and dedicated pancreatic ct. unable to get mrcp due to knee replacements. bili is wnl. Chronic kidney disease stage III/IV Serum Cr at baseline Cont to monitor History of atrial fibrillation Cont Xarelto Hypertension Blood pressure medications held secondary to above History of diastolic congestive heart failure Patient appears to be clinically dehydrated, we'll hold diuretic therapy and judiciously hydrate GERD Continue PPI Hypothyroidism Continue levothyroxine VS, I&O, 24H, Fishbone Vital Signs/I&O Vital Signs Date Time Temp Pulse Resp B/P (MAP) Pulse Ox O2 Delivery O2 Flow Rate FiO2 06/05/19 22:10 64 128/62 06/05/19 22:00 98.4 18 97 06/04/19 10:46 Room Air I&O- Last 24 Hours up to 6 AM 06/06/19 06:00 Intake Total 340 ml Output Total 650 ml Balance -310 ml Laboratory Data 24H LABS Laboratory Tests 2 06/05/19 08:15: Urine Random Osmolality 327L, Urine Total Volume 900, Urine Total Protein mg/dL 30.8H, Urine Sodium 24 Hour 15L 06/05/19 12:11: Whole Blood Ionized Calcium 5.1 06/05/19 17:59: Whole Blood Ionized Calcium 5.2, Aspartate Amino Transf (AST/SGOT) 8, Alanine Aminotransferase (ALT/SGPT) 16, Alkaline Phosphatase 236H, Total Bilirubin 0.7, Direct Bilirubin 0.4H, Total Protein 7.3, Albumin 2.8L, Albumin/Globulin Ratio 0.62L, Amylase Level 317H, Lipase 2930H 06/06/19 00:25: Whole Blood Ionized Calcium 5.0 Microbiology Microbiology 06/05/19 Respiratory Virus Panel (PCR) ([facility]AY) - Final, Complete ANDRES BURNHAM MD Jun 06, 2019 06:13
[2019-06-06] MEDS: VITAMIN D 1,000 INTERNATIONAL UNITS TABLET PO SCH (08:35)
[2019-06-06] MEDS: RIVAROXABAN 15 MG TAB (XARELTO) PO SCH (08:35)
[2019-06-06] MEDS: ONDANSETRON 4MG/2ML VIAL (J2405) IV PRN ×3 (08:35→19:05)
[2019-06-06] MEDS: METOPROLOL TART 50 MG TAB PO SCH (08:36)
[2019-06-06] MEDS: OMEPRAZOLE 20 MG CAP PO SCH (08:36)
[2019-06-06] MEDS ORDERED: D5W/0.45% SODIUM CHLORIDE 1,000 ML IV SCH (09:00)
[2019-06-06 09:15] LABS: CHOLESTEROL RISK RATIO 2.676 (<5)
[2019-06-06] MEDS: CALCITONIN SALMON (MIACALCIN) 400INTERNATIONAL UNITS/2ML INJ (J0630) SQ SCH ×2 (09:27→21:33)
[2019-06-06 14:00] VITALS: BP 130/70
[2019-06-06] MEDS ORDERED: ISOVUE-370 76% 100ML VIAL (Q9967) As Ordered ONE (15:30)
[2019-06-06] MEDS: ACETAMINOPHEN TAB 650MG DOSE (2X325MG) PO PRN (17:54)
[2019-06-06] MEDS: METOPROLOL TART 25 MG TABLET PO SCH (21:32)
[2019-06-06 22:00] VITALS: BP 137/83
[2019-06-07] MEDS: LEVOTHYROXINE 25MCG TABLET (0.025MG) PO SCH (05:32)
[2019-06-07 06:00] VITALS: BP 128/61
[2019-06-07 06:24] LABS: HEMOGLOBIN 13.4 g/dl (12.0-15.5); MEAN CORPUSCULAR HEMOGLOBIN 32.3 pg (27.0-33.0); MEAN CORPUSCULAR HGB CONC 33.5 g/dl (32.0-36.5); MEAN CORPUSCULAR VOLUME 96.4 fl (80.0-96.0); PLATELET COUNT, AUTOMATED 372 10^3/uL (150-450); RED BLOOD COUNT 4.15 10^6/uL (4.00-5.40); WHITE BLOOD COUNT 11.1 10^3/uL (4.0-10.0)
[2019-06-07 06:55] LABS: CALCIUM LEVEL 9.4 MG/DL (8.8-10.2); CREATININE FOR GFR 1.38 MG/DL (0.55-1.30); GLOMERULAR FILTRATION RATE 39.3 (>39); POTASSIUM SERUM 3.3 MEQ/L (3.5-5.1)
--- NOTE | 2019-06-07 07:57 | REP ---
RIGHT UPPER QUADRANT SONOGRAPHY: HISTORY: Hypercalcemia. Pancreatitis. Rule out cholecystitis or cholelithiasis. Comparison chest CT study June 05, 2019. SONOGRAPHIC FINDINGS: Scanning through right upper quadrant of the abdomen demonstrates multiple mobile shadowing gallstones in the dependent portion the gallbladder consistent with cholelithiasis. There is tenderness to scanning over the gallbladder. No pericholecystic fluid or obvious wall thickening. Common bile duct is at the upper range of normal in size measuring 0.7 cm in diameter. There is a 0.8 cm cyst in the liver. No other focal liver lesion is appreciated. There is no evidence of ascites or right renal abnormality. The right kidney measures 8.0 x 4.3 x 4.1 cm. The pancreatic body and tail are obscured by bowel gas. No evidence of mass or cyst is seen in the region of the pancreatic head. IMPRESSION: Cholelithiasis. Small liver cysts. Limited visualization of the pancreas. Electronically Signed by Bahman Campbell MD 06/07/2019 07:57 A
--- NOTE | 2019-06-07 08:15 | REP ---
CT ABDOMEN A WITHOUT AND WITH CONTRAST: Dedicated pancreas protocol. Three-phase postcontrast imaging. HISTORY: Pancreatic abnormality is seen on noncontrast CT study June 05, 2019. CONTRAST DOSE: 75 mL of intravenous Isovue [address] FINDINGS: Digital preliminary construction management assistant radiograph shows a right hip arthroplasty. Normal bowel gas pattern. Lung bases are clear. No focal liver lesion is seen. There are two accessory splenules. No adrenal lesion is seen. Kidneys enhance symmetrically and are morphologically intact. No stone or mass is seen. Small and large bowel loops are unremarkable. The patient is status post ventral hernia repair. The appendix is surgically absent. There are faintly calcified gallstones in the gallbladder lumen. There is edema in the peripancreatic soft tissues about the pancreatic head. On arterial phase images, there is no evidence of hypervascular pancreatic lesion. The tail of the pancreas is somewhat atrophic and the main pancreatic duct is moderately dilated up to 9 mm. No pancreatic mass lesion is identified on arterial or equilibrium phase imaging. One of the larger calcific densities in the head of the pancreas is aligned with the main pancreatic duct and could be a pancreatic ductolith. This measures 9 mm. There is no evidence of adenopathy. There are atherosclerotic arterial changes. No vascular occlusion is seen. IMPRESSION: Changes consistent with chronic pancreatitis with some intrapancreatic and peripancreatic edema in the pancreatic head. The main pancreatic duct is dilated and there is atrophy of the body and tail of the pancreas. There are multiple calcifications in the pancreatic head question pancreatic duct stone. No mass lesion is identified. Gallstones are seen in the gallbladder. Noncontrast CT study shows multiple dystrophic calcifications in the pancreatic head consistent with chronic pancreatitis. Electronically Signed by Bahman Campbell MD 06/07/2019 08:41 A
[2019-06-07] MEDS ORDERED: POTASSIUM CHLORIDE 10 MEQ SR TABLET PO ONE (08:45)
[2019-06-07 09:02] LABS: ALBUMIN 2.7 GM/DL (3.2-5.2); BILIRUBIN,DIRECT 0.3 MG/DL (0.0-0.2); BILIRUBIN,TOTAL 0.7 MG/DL (0.2-1.0); TOTAL PROTEIN 6.9 GM/DL (6.4-8.2)
[2019-06-07] MEDS: ONDANSETRON 4MG/2ML VIAL (J2405) IV PRN ×2 (09:06→17:54)
[2019-06-07] MEDS: PIPERACILLIN/TAZOBACTAM SOD 2.25 GM in D5W MINI-BAG PLUS 50 ML IV SCH ×3 (09:06→21:29)
[2019-06-07] MEDS: METOPROLOL TART 50 MG TAB PO SCH (09:07)
[2019-06-07] MEDS: RIVAROXABAN 15 MG TAB (XARELTO) PO SCH (09:07)
[2019-06-07] MEDS: OMEPRAZOLE 20 MG CAP PO SCH (09:08)
[2019-06-07] MEDS: VITAMIN D 1,000 INTERNATIONAL UNITS TABLET PO SCH (09:09)
[2019-06-07] MEDS: D5W/0.45% SODIUM CHLORIDE 1,000 ML IV SCH (09:10)
[2019-06-07] MEDS: CALCITONIN SALMON (MIACALCIN) 400INTERNATIONAL UNITS/2ML INJ (J0630) SQ SCH ×2 (11:26→20:24)
[2019-06-07 14:00] VITALS: BP 129/67
--- NOTE | 2019-06-07 17:01 | CR.PDOC ---
General Date of Consultation: Jun 07, 2019 Referring Provider: ANDERS BURNHAM MD Attending Physician: WAYNE DEL REAL MD Consultation REASON FOR CONSULTATION/CHIEF COMPLAINT: Abnormal CT scan showing pancreatic duct stone. HISTORY OF PRESENT ILLNESS: 78 Year old female patient with A-fib (on Xarelto), HTN, hypothyroidism, diastolic CHF, history of pancreatitis 2/2 gallstones (hospitalized in [place] in 2015) who presented to [facility] on 06/04/2019 for hypercalcemia and hyponatremia. The patient reports generalized abdominal discomfort, nausea, vomiting, decreased appetite and watery diarrhea for several weeks. She cannot localize or pinpoint any specific site of abdominal pain but admits it hurts "all over" and sometimes radiates to her back. She rates her pain as a 4/10 and describes it as more discomfort and aching in quality. She admits to at least one watery or soft bowel movement per day for at least a month. Of note, the patient was hospitalized 3 years ago in [place] for pancreatitis and was found to have cholelithiasis, which has been inconsequential since then, with no other complications. Otherwise, she has undergone colonoscopies every 5 years due to the findings of numerous polyps and her increased risk for colon cancer. She states that she had an EGD in the past but unsure of the results. She denies any fevers, recent illness, sick contacts, recent travel, early satiety or unintentional weight loss. No history of hematemesis, melena or hematochezia. She does report having just started taking hydralazine 1 month ago. ALLERGIES: Please see below. HOME MEDICATIONS: Please see below. PAST MEDICAL HISTORY: 1. Atrial Fibrillation (on Xarelto, sees Dr. Cordova) 2. HTN 3. dCHF 4. Hypothyroidism 5. Osteoarthritis 6. History of Irritable bowel syndrome (previous colonscopies done in [place] and [place], no results available) 7. History of pancreatitis 2/2 gallstones in 2016 8. Glaucoma 9. Chronic Kidney Disease III/IV 10. GERD PAST SURGICAL HISTORY: 1. Tubal ligation 2. Appendectomy FAMILY HISTORY: Remote family history of colon cancer SOCIAL HISTORY: Marital status and/or living arrangements: Lives with in [place] Tobacco use:none ETOH: occasional Illicit drug use: denies REVIEW OF SYSTEMS: CONSTITUTIONAL: overall feels unwell HEENT: denies vision changes, sinus pressure, reports mouth dryness. Denies ear discharge/pain, No dysphagia. Denies jaundice or photophobia CARDIOVASCULAR: denies chest pain or palpitations. Reports some leg swelling RESPIRATORY: denies shortness of breath, difficulty breathing, wheezing or cough GENITOURINARY: denies dysuria, frequent urination MUSCULOSKELETAL: reports generalized muscle aches but no joint pain and is ambulating well GASTROINTESTINAL: reports nausea, vomiting, watery diarrhea, loss of appetite SKIN: no new rashes/bumps NEUROLOGICAL: no pain/loss of sensation PSYCHIATRIC: normal mood/affect reported ENDOCRINE: does report weakness, cold intolerance HEMATOLOGIC/LYMPHATIC: no bruising or gum bleeding ALLERGIC/IMMUNOLOGIC: none PHYSICAL EXAMINATION: VITAL SIGNS: Please see below. GENERAL APPEARANCE: awake, laying in bed under several blankets, appears stated age, frail-appearing HEENT: no pallor/icterus. Normal oropharynx, no enlarged cervical lymph nodes. dry mucus membranes, extraocular movements intact RESPIRATORY: decreased breath sounds at bases bilaterally, no cr ackles/wheezes/rales, otherwise clear to ausculatation CARDIOVASCULAR: irregularly irregular rhythm, normal S1/S2 ABDOMEN: soft, tender to deep palpation in RLQ, no epigastric tenderness, no hepatosplenomegaly, bowel sounds present, no palpable masses EXTREMITIES: slight edema in lower extremities bilaterally NEUROLOGICAL: CN 2-12 intact, AAOx3 PSYCHIATRIC: normal mood/affect LABORATORY DATA: Please see below. HCV screening not indicated. CT scan reviewed with radiology. Impression: -- Abdominal pain, nausea, vomiting and diarrhea intermittently, with elevated lipase and CT scan abdomen showing possible acute and chronic pancreatitis with calcification in pancreatic ducts with prior known history of gallstone pancreatitis in 2016, hypercalcemia of unclear etiology, lung granuloma -- DDx-- Chronic / recurrent pancreatitis (Multiple risk factors - gallstones, vs Hypercalcemia vs medications vs infiltrative disorders). -- Hypercalcemia -- work up as per primary team. -- Lung granuloma -- work up as per primary team. Recommendations: -- Treat for pancreatitis with IV fluids- prefer ringers lactate - start with 3 ml/ Kg/ Hour and adjust drip rate every 12 hours based on urine output and fluid status. -- NPO for 1-3 days depending on the clinical course. -- Advance diet when patient has appetite. -- Monitor for fluid status. -- Obtain prior records from [facility] from 2016 to review prior work up done for pancreatitis. -- In view of chronic diarrhea, and suspected chronic pancreatitis, obtain Fecal elastase levels after the acute inflammation is resolved. -- Elective Cholecystectomy evaluation by surgery for biliary pancreatitis. -- Elective Endoscopic ultrasound ( EUS) - to be referred to [facility] for that test. -- Based on the EUS and above tests, to consider further management of calcific chronic pancreatitis. -- Upon discharge patient to follow up at [facility] for above testing. ( Please give referral prior to discharge). Plan of care discussed with patient and primary team. All questions answered and patient verbalized understanding and agreed with above. Laboratory Data CBC/BMP Laboratory Tests 06/07/19 05:53 Red Blood Count 4.15, Mean Corpuscular Volume 96.4 H, Mean Corpuscular Hemoglobin 32.3, Mean Corpuscular Hemoglobin Concent 33.5, Red Cell Distribution Width 13.1 Allergies Coded Allergies: No Known Allergies (Unverified , 06/03/19) Home Medications Scheduled Cholecalciferol (Vitamin D3) (Vitamin D3) 2,000 Unit Cap, 1 CAP PO DAILY, (Reported) Dorzolamide/Timolol/Pf (Cosopt Pf Eye Drops) 1 Belkis Belkis, 1 DROP OU BID, (Reported) Hydralazine HCl (Hydralazine HCl) 10 Mg Tablet, 1 TAB PO TID, (Reported) Levothyroxine Sodium (Levothyroxine Sodium) 25 Mcg Tab, 1 TAB PO DAILY, ( Reported) Metoprolol Tartrate (Metoprolol Tartrate) 25 Mg Tab, 50 MG PO QAM, (Reported) Metoprolol Tartrate (Metoprolol Tartrate) 25 Mg Tablet, 25 MG PO QPM, (Reported) Omeprazole (Omeprazole) 40 Mg Cap, 40 MG PO DAILY, (Reported) Potassium Chloride (Potassium Chloride) 10 Meq Tab, 10 MEQ PO BID, (Reported) Rivaroxaban (Xarelto) 15 Mg Tab, 15 MG PO DAILY, (Reported) Spironolactone (Spironolactone) 25 Mg Tab, 25 MG PO DAILY, (Reported) Torsemide (Torsemide) 10 Mg Tab, 20 MG PO QAM, (Reported) Torsemide (Torsemide) 10 Mg Tablet, 10 MG PO QPM, (Reported) JIMI WEBSTER MD Jun 07, 2019 10:56 WAYNE DEL REAL MD Jun 07, 2019 17:01
--- NOTE | 2019-06-07 18:50 | IPNPDOC ---
Date Seen The patient was seen on 06/07/19. Progress Note SUBJECTIVE: Pt still c/o epigastric luq pain radiating to back with nausea, without vomiting, fever, chills. per Dr. Wright, treat as acute pancreatitis with npo status, ivfluids, pain meds. CT abd pancreatic protocol : most likely calcifications from chronic pancreatitis and unlikely to be pancreatic duct stone. MRCP cannot be done due to knee replacements. OBJECTIVE: PHYSICAL EXAMINATION: VITALS PLS SEE BELOW General Exam: Positive: Alert, Cooperative, No Acute Distress ENT Exam: Positive: Atraumatic; Negative: Mucous membr. moist/pink (dry mucous membranes) Neck Exam: Negative: JVD Chest Exam: Positive: Diminished Heart Exam: Positive: Rate Normal, Normal S1, Normal S2 Abdomen Exam: Positive: Soft; (+) bowel sounds. slightly tender in LUQ epigastric area. Extremity Exam: Negative: Tenderness, Swelling Psych Exam: Positive: Oriented x 3 LABORATORY DATA, IMAGING STUDIES, MICROBIOLOGY:PLS SEE BELOW ASSESSMENT AND PLAN: 78-year-old female with past medical history of hypertension, hypothyroidism, atrial fibrillation on xarelto, osteoporosis, and diastolic congestive heart failure was sent from Dr. Cordova's office due to elevated serum calcium and low serum sodium levels. The patient also endorses feeling generalized weakness and malaise over the last 1 week. She denies any significant weight loss, but does endorse a decreased appetite. She denies any complaints of fevers, chills, chest pain, palpitations, abdominal pain, or any nausea/vomiting/diarrhea. She reports starting hydralazine as a new medication one month ago, but otherwise denies any other changes to her medications. Hypercalcemia, Hypovolemic Hyponatremia She admits to Loss of appetite, fatigue, weakness, and back pain, but denies Nausea, vomiting, Constipation, abdominal pain, Increased thirst, frequent urination, Confusion, disorientation, difficulty thinking, Headaches, or Depression.UPEP and SPEP still pending. ionized calcium is improving. Tele unremarkable. PTH level noted to be low, PTHrp, Vit D 1,25, and Vitamin D, 25 Hydroxy, SPEP/UPEP, Light Chain assay levels ordered--Possibly 2/2 underlying malignancy? reviewed CT of the Chest to r/o any lesions as this can certainly cause PTHrp induced hypercalcemia, and SIADH induced Hyponatremia ordered urine lytes to workup hyponatremia Diuretics held due to dehydrated appearance, Gentle IV fluid hydration ordered serial ionized calcium, bmp. improved to normal calcium levels after calcitonin and zolendronate. acute on chronic pancreatitis pt c/o decreased appetite, nausea without vomiting, and abd pain in luq epigastric radiating to back 3/10 achy, intermittent, unchanged by position. CT chest: granulomatous disease, and calcifications in pancreas with possible chronic/acute pancreatitis. Pt denies dyspnea, or pnd. with hypercalcemia with improvement after zolendronate and calcitonin us gallbladder cholelithiasis pancreatic ct.chronic pancreatiits. unable to get mrcp due to knee replacements. bili is wnl. npo ivfluids pain meds Chronic kidney disease stage III/IV Serum Cr at baseline Cont to monitor History of atrial fibrillation Cont Xarelto Hypertension Blood pressure medications held secondary to above History of diastolic congestive heart failure Patient appears to be clinically dehydrated, we'll hold diuretic therapy and judiciously hydrate GERD Continue PPI Hypothyroidism Continue levothyroxine VS, I&O, 24H, Fishbone Vital Signs/I&O Vital Signs Date Time Temp Pulse Resp B/P (MAP) Pulse Ox O2 Delivery O2 Flow Rate FiO2 06/06/19 22:00 97.2 73 18 137/83 (101) 94 06/04/19 10:46 Room Air I&O- Last 24 Hours up to 6 AM 06/07/19 06:00 Intake Total 800 ml Output Total 200 ml Balance 600 ml Laboratory Data 24H LABS Laboratory Tests 2 06/06/19 06:26: Nucleated Red Blood Cells % (auto) 0.0, Anion Gap 11, Glomerular Filtration Rate 38.3L, Calcium Level 10.2, Whole Blood Ionized Calcium 5.0, Triglycerides Level 112, LDL Cholesterol 87, Total Cholesterol 174, Non-HDL Cholesterol (LDL + VLDL) 109, Total HDL Cholesterol 65, Cholesterol/HDL Ratio 2.676 06/06/19 12:25: Whole Blood Ionized Calcium 5.0 06/06/19 18:12: Whole Blood Ionized Calcium 4.8 06/07/19 05:53: CBC/BMP Laboratory Tests 06/06/19 06:26 Red Blood Count 4.44, Mean Corpuscular Volume 95.5, Mean Corpuscular Hemoglobin 31.5, Mean Corpuscular Hemoglobin Concent 33.0, Red Cell Distribution Width 13.2 Microbiology Microbiology 06/05/19 Respiratory Virus Panel (PCR) (JAY) - Final, Complete ANDRES BURNHAM MD Jun 07, 2019 06:23
[2019-06-07] MEDS: METOPROLOL TART 25 MG TABLET PO SCH (20:24)
[2019-06-07] MEDS: ACETAMINOPHEN TAB 650MG DOSE (2X325MG) PO PRN (20:36)
[2019-06-07 22:00] VITALS: BP 124/81
[2019-06-08 00:07] LABS: PTH RELATED PEPTIDE < 2.0 pmol/L (.)
[2019-06-08] MEDS: PIPERACILLIN/TAZOBACTAM SOD 2.25 GM in D5W MINI-BAG PLUS 50 ML IV SCH ×2 (03:17→10:00)
[2019-06-08] MEDS: LEVOTHYROXINE 25MCG TABLET (0.025MG) PO SCH (05:29)
[2019-06-08] MEDS: ACETAMINOPHEN TAB 650MG DOSE (2X325MG) PO PRN ×2 (05:31→20:55)
[2019-06-08 06:00] VITALS: BP 121/73
[2019-06-08 06:06] LABS: HEMATOCRIT 38.6 % (36.0-47.0); HEMOGLOBIN 13.1 g/dl (12.0-15.5); MEAN CORPUSCULAR HEMOGLOBIN 33.2 pg (27.0-33.0); MEAN CORPUSCULAR HGB CONC 33.9 g/dl (32.0-36.5); MEAN CORPUSCULAR VOLUME 97.7 fl (80.0-96.0); PLATELET COUNT, AUTOMATED 355 10^3/uL (150-450); RED BLOOD COUNT 3.95 10^6/uL (4.00-5.40); WHITE BLOOD COUNT 9.1 10^3/uL (4.0-10.0)
[2019-06-08 06:30] LABS: ALBUMIN 2.5 GM/DL (3.2-5.2); BILIRUBIN,DIRECT 0.3 MG/DL (0.0-0.2); BILIRUBIN,TOTAL 0.7 MG/DL (0.2-1.0); CALCIUM LEVEL 8.8 MG/DL (8.8-10.2); CREATININE FOR GFR 1.47 MG/DL (0.55-1.30); GLOMERULAR FILTRATION RATE 36.5 (>39); POTASSIUM SERUM 3.7 MEQ/L (3.5-5.1); TOTAL PROTEIN 6.5 GM/DL (6.4-8.2)
[2019-06-08] MEDS: RIVAROXABAN 15 MG TAB (XARELTO) PO SCH (08:53)
[2019-06-08] MEDS: D5W/0.45% SODIUM CHLORIDE 1,000 ML IV SCH (08:53)
[2019-06-08] MEDS: VITAMIN D 1,000 INTERNATIONAL UNITS TABLET PO SCH (08:54)
[2019-06-08] MEDS: OMEPRAZOLE 20 MG CAP PO SCH (08:54)
[2019-06-08] MEDS: METOPROLOL TART 50 MG TAB PO SCH (08:56)
[2019-06-08 10:39] LABS: FREE LAMBDA LIGHT CHAINS URINE 34.5 mg/L (0.24-6.66); KAPPA/LAMBDA RATIO URINE 8.03 (2.04-10.37)
[2019-06-08] MEDS: CALCITONIN SALMON (MIACALCIN) 400INTERNATIONAL UNITS/2ML INJ (J0630) SQ SCH ×2 (10:58→20:56)
[2019-06-08 11:43] LABS: ALBUMIN 3.21 GM/DL (3.29-5.55); ALBUMIN % 45.9 % (55.8-66.1); ALPHA-1-GLOBULIN % 6.4 % (2.9-4.9); ALPHA-1-GLOBULINS 0.45 GM/DL (0.17-0.41); ALPHA-2-GLOBULINS 0.88 GM/DL (0.42-0.99); ALPHA-2-GLOBULINS % 12.5 % (7.1-11.8); BETA-1-GLOBULINS 0.49 GM/DL (0.28-0.60); BETA-2-GLOBULINS 0.93 GM/DL (0.19-0.55); BETA-2-GLOBULINS % 13.3 % (3.2-6.5); GAMMA GLOBULIN % 14.9 % (11.1-18.8); GAMMA GLOBULINS 1.04 GM/DL (0.65-1.58)
[2019-06-08 14:00] VITALS: BP 140/75
[2019-06-08 14:11] VITALS: BP 140/75
[2019-06-08] MEDS: METOPROLOL TART 25 MG TABLET PO SCH (20:55)
[2019-06-08 22:00] VITALS: BP 133/76
--- NOTE | 2019-06-08 22:04 | IPNPDOC ---
Text Note Date of Service The patient was seen on 06/08/19. NOTE S: 78-year-old female with past medical history of hypertension, hypothyroidism, atrial fibrillation on xarelto, osteoporosis, and diastolic congestive heart failure was sent from Dr. Cordova's office due to elevated serum calcium and low serum sodium levels. She was found to have acute on chronic pancreatitis. Presently she states minimal abdomen pain. poor appetite but toelrating sips of liquid with medication. no further N or V. Daughter present in room. O: Vitals as below General: pleasant, NAD AAOx3 Heart - irreg/irreg no murmur - rate controlled 60-70 LCTA no W/R/R, no CVA tenderness Abdomen :soft NT ND NABS A/P: 1) Hypercalcemia, Hypovolemic Hyponatremia - RESOLVED -UPEP and SPEP still pending. ionized calcium is improving. - need to r/o malignacy as possible etiology of electrolyte disturbance -continue calcitonin and zolendronate. - d/c IVF and hold diuretics 2) acute on chronic pancreatitis - present on admission results of CT and US reviewed with patient and daughter GI consult recommendations reviewed with patient and daughter Will advance diet to clear, if tolerates and no worsening of lipase, then further advance If does not tolerate, will need transfer to [place] [facility] for EUS and further GI workup unable to get mrcp due to knee replacements 3) Chronic kidney disease stage III - stable with creatinine at baseline 4) History of atrial fibrillation - rate controlled; Cont Xarelto 5) Hypertension - monitor; on metoprolol; consider restarting hydralazine. spironolactone and loop diuretic on hold due to electrolyte disturbances; if calcium increases, consider restarting loop. 6) History of diastolic congestive heart failure - no signs of exacerbation; d/c IVF. monitor 7) GERD -Continue PPI 8) Hypothyroidism - Continue levothyroxine VS,Fishbone, I+O VS, Fishbone, I+O Laboratory Tests 06/08/19 05:33 Red Blood Count 3.95 L, Mean Corpuscular Volume 97.7 H, Mean Corpuscular Hemoglobin 33.2 H, Mean Corpuscular Hemoglobin Concent 33.9, Red Cell Dist ribution Width 13.1 Vital Signs Date Time Temp Pulse Resp B/P (MAP) Pulse Ox O2 Delivery O2 Flow Rate FiO2 06/08/19 08:56 73 136/84 06/08/19 06:00 96.4 18 95 06/04/19 10:46 Room Air I&O- Last 24 Hours up to 6 AM 06/08/19 06:00 Intake Total 1700 ml Output Total 200 ml Balance 1500 ml KELVIN GARCIA DO Jun 08, 2019 13:32
[2019-06-09] MEDS: LEVOTHYROXINE 25MCG TABLET (0.025MG) PO SCH (05:33)
[2019-06-09 06:00] VITALS: BP 132/86
[2019-06-09 07:29] LABS: HEMATOCRIT 38.5 % (36.0-47.0); HEMOGLOBIN 12.6 g/dl (12.0-15.5); MEAN CORPUSCULAR HEMOGLOBIN 32.1 pg (27.0-33.0); MEAN CORPUSCULAR HGB CONC 32.7 g/dl (32.0-36.5); PLATELET COUNT, AUTOMATED 319 10^3/uL (150-450); RED BLOOD COUNT 3.93 10^6/uL (4.00-5.40); WHITE BLOOD COUNT 8.9 10^3/uL (4.0-10.0)
[2019-06-09 08:02] LABS: CALCIUM LEVEL 8.6 MG/DL (8.8-10.2); CREATININE FOR GFR 1.27 MG/DL (0.55-1.30); GLOMERULAR FILTRATION RATE 43.2 (>39); POTASSIUM SERUM 3.6 MEQ/L (3.5-5.1)
[2019-06-09] MEDS: RIVAROXABAN 15 MG TAB (XARELTO) PO SCH (08:40)
[2019-06-09] MEDS: OMEPRAZOLE 20 MG CAP PO SCH (08:40)
[2019-06-09] MEDS: CALCITONIN SALMON (MIACALCIN) 400INTERNATIONAL UNITS/2ML INJ (J0630) SQ SCH ×2 (08:41→21:26)
[2019-06-09] MEDS: VITAMIN D 1,000 INTERNATIONAL UNITS TABLET PO SCH (08:41)
[2019-06-09] MEDS: METOPROLOL TART 50 MG TAB PO SCH (08:41)
[2019-06-09 14:00] VITALS: BP 127/66
[2019-06-09] MEDS ORDERED: PROMETHAZINE 25 MG TAB PO PRN (14:30)
[2019-06-09] MEDS: METOPROLOL TART 25 MG TABLET PO SCH (21:25)
[2019-06-09 22:00] VITALS: BP 144/74
--- NOTE | 2019-06-09 22:42 | IPNPDOC ---
Text Note Date of Service The patient was seen on 06/09/19. NOTE S: pateint states tolerating advance diet to full liquids. no N, no V. no abd omen pain. She is being seen for acute on chronic pancreatitis and hypercalcemia. She had episode today of 2 second pause on tele but was asymptomatic. She states no CP, no palpitations, no SOB. daughter and extended family present in room O: Vitals as below General: pleasant NAD, AAOx3, lying supine in bed with neck pillow HRRR LCTA Abdomen: soft NT ND NABS A/P: 1) Hypercalcemia, Hypovolemic Hyponatremia - RESOLVED -UPEP and SPEP still pending. ionized calcium is improving. - need to r/o malignacy as possible etiology of electrolyte disturbance -continue calcitonin and zolendronate. - d/c IVF and hold diuretics 2) acute on chronic pancreatitis - present on admission labs improving. advance to soft for breakfast. repeat lipase in AM. consider pancrease enzyme cleared by PT for discharge 3) Chronic kidney disease stage III - stable with creatinine at baseline 4) History of atrial fibrillation - rate controlled with occasional pause; Cont Xarelto; d/c ondensatron; continue with metoprolol (hold parameters). if persists, consider consult cardiology 5) Hypertension - monitor; on metoprolol; consider restarting hydralazine. spironolactone and loop diuretic on hold due to electrolyte disturbances; if calcium increases, consider restarting loop. 6) History of diastolic congestive heart failure - no signs of exacerbation; d/c IVF. monitor 7) GERD -Continue PPI 8) Hypothyroidism - Continue levothyroxine Current Medications Acetaminophen (Tylenol Tab) 650 mg Q4HP PRN PO PAIN OR FEVER Last administered on 06/08/19at 20:55; Start 06/03/19 at 23:30 Calcitonin [place] (Miacalcin) 200 interunits Q12H SQ Last administered on 06/09/19at 21:26; Start 06/04/19 at 09:00 Levothyroxine Sodium (Synthroid) 25 mcg DAILY@06 PO Last administered on 06/09/19at 05:33; Start 06/04/19 at 06:00 Metoprolol Tartrate (Lopressor) 25 mg QPM PO Last administered on 06/09/19at 21:25; Start 06/03/19 at 21:00 Metoprolol Tartrate (Lopressor) 50 mg QAM PO Last administered on 06/09/19at 08:41; Start 06/04/19 at 09:00 Omeprazole (PriLOSEC) 40 mg DAILY PO Last administered on 06/09/19at 08:40; Start 06/04/19 at 09:00 Promethazine HCl (Phenergan) 25 mg Q8HP PRN PO NAUSEA; Start 06/09/19 at 14:30 Rivaroxaban (Xarelto) 15 mg DAILY@0800 PO Last administered on 06/09/19at 08:40; Start 06/04/19 at 08:00 Vitamin D (Vitamin D) 2,000 units DAILY PO Last administered on 06/09/19at 08:41; Start 06/04/19 at 09:00 VS,Fishbone, I+O VS, Fishbone, I+O Laboratory Tests 06/09/19 07:13 Red Blood Count 3.93 L, Mean Corpuscular Volume 98.0 H, Mean Corpuscular Hemoglobin 32.1, Mean Corpuscular Hemoglobin Concent 32.7, Red Cell Distribution Width 13.2, Calcium Level 8.6 L Vital Signs Date Time Temp Pulse Resp B/P (MAP) Pulse Ox O2 Delivery O2 Flow Rate FiO2 06/09/19 08:41 83 128/76 06/09/19 06:00 96.4 17 97 06/04/19 10:46 Room Air I&O- Last 24 Hours up to 6 AM 06/09/19 06:00 Intake Total 500 ml Output Total 600 ml Balance -100 ml KELVIN GARCIA DO Jun 09, 2019 13:29
[2019-06-09] MEDS: DORZOLAMIDE OU SCH (23:00)
[2019-06-09] MEDS: TIMOLOL MALEATE OU SCH (23:00)
[2019-06-10 06:00] VITALS: BP 150/86
[2019-06-10] MEDS: LEVOTHYROXINE 25MCG TABLET (0.025MG) PO SCH (06:07)
[2019-06-10 06:14] LABS: HEMATOCRIT 40.4 % (36.0-47.0); HEMOGLOBIN 13.1 g/dl (12.0-15.5); MEAN CORPUSCULAR HEMOGLOBIN 32.4 pg (27.0-33.0); MEAN CORPUSCULAR HGB CONC 32.4 g/dl (32.0-36.5); PLATELET COUNT, AUTOMATED 343 10^3/uL (150-450); RED BLOOD COUNT 4.04 10^6/uL (4.00-5.40); WHITE BLOOD COUNT 8.3 10^3/uL (4.0-10.0)
[2019-06-10 06:39] LABS: ALBUMIN 2.6 GM/DL (3.2-5.2); BILIRUBIN,TOTAL 0.6 MG/DL (0.2-1.0); CALCIUM LEVEL 8.5 MG/DL (8.8-10.2); CREATININE FOR GFR 1.21 MG/DL (0.55-1.30); GLOMERULAR FILTRATION RATE 45.7 (>39); POTASSIUM SERUM 3.8 MEQ/L (3.5-5.1); TOTAL PROTEIN 6.4 GM/DL (6.4-8.2)
[2019-06-10 08:58] VITALS: BP 130/90
[2019-06-10 09:00] VITALS: BP 130/90
[2019-06-10] MEDS: METOPROLOL TART 50 MG TAB PO SCH (09:00)
[2019-06-10] MEDS: OMEPRAZOLE 20 MG CAP PO SCH (09:00)
[2019-06-10] MEDS: RIVAROXABAN 15 MG TAB (XARELTO) PO SCH (09:00)
[2019-06-10] MEDS: VITAMIN D 1,000 INTERNATIONAL UNITS TABLET PO SCH (09:00)
[2019-06-10] MEDS: TIMOLOL MALEATE OU SCH (09:00)
[2019-06-10] MEDS: DORZOLAMIDE OU SCH (09:00)
[2019-06-10] MEDS: CALCITONIN SALMON (MIACALCIN) 400INTERNATIONAL UNITS/2ML INJ (J0630) SQ SCH (10:08)
[2019-06-10] MEDS ORDERED: CALC20SPR (11:06)
[2019-06-10 12:29] LABS: UPEP INTERPRETATION NO M-SPIKE NOTED; URINE VOLUME 900 ML
--- NOTE | 2019-06-10 20:38 | DS.PDOC ---
Discharge Summary General Date of Admission Jun 03, 2019 at 23:22 Date of Discharge 06/10/19 Attending Physician: KELVIN GARCIA DO Specialist/Consultants Involve: WAYNE DEL REAL MD Specialist/Consultants Involve PCP - Jane Luciano NP, Dr Qureshi; Cardiology: Dr Cordova Discharge Summary PROCEDURES PERFORMED DURING STAY: none ADMITTING DIAGNOSES: Hypercalcemia, Hypovolemic Hyponatremia DISCHARGE DIAGNOSES: 1) Hypercalcemia (secondary to suspected undiagnosed malignancy) 2) Hypovolemic Hyponatremia 3) acute on chronic pancreatitis - present on admission 4) Chronic kidney disease stage III 5) History of atrial fibrillation 6) Hypertension 7) History of diastolic congestive heart failure 8) GERD 9) Hypothyroidism COMPLICATIONS/CHIEF COMPLAINT: Hypercalcemia. HISTORY OF PRESENT ILLNESS: 78-year-old female with past medical history of hypertension, hypothyroidism, atrial fibrillation on xarelto, osteoporosis, and diastolic congestive heart failure was sent from Dr. Cordova's office due to elevated serum calcium and low serum sodium levels. See H&P for details. HOSPITAL COURSE: Patient admitted and treated with IVF, zolendronate and calcitonin injections. Calcium levels improved. Lab workup showed low PTH, intact vitamin D levels and elevated SPEP/UPEP, light chain assays which were suspicious for underlying malignancy. Diuretic were held and her sodium levels improved. US of gallbladder suggested cholelithiasis but she is a poor surgical candidate due to underlying heart disease. CT confirmed acute on chronic pancreatitis and GI consulted who recommended further outpatient workup as below (see discharge instruction). Patient continued to improved and lipase normalized. diet advanced and tolerated. She was discharged in stable and improved condition with home health. daughter is primary career resource specialist. DISCHARGE MEDICATIONS: Please see below. ALLERGIES: Please see below. PHYSICAL EXAMINATION ON DISCHARGE: VITAL SIGNS: Please see below. General: pleasant NAD, AAOx3 (ambulating with PT in halls after exam) HRRR LCTA Abdomen: soft NT ND NABS LABORATORY DATA: Please see below. ACTIVITY: as tolerated DIET: soft as tolerated DISCHARGE PLAN: discharge with home health DISCHARGE INSTRUCTIONS: 1. repeat CMP,CBC in 1 week 2. follow up with PCP in 1 week to review labs and calcium levels 3. follow up with cardiology as previously scheduled 4. follow up with [facility] [place] in 2 weeks ITEMS TO FOLLOWUP ON ON OUTPATIENT (Per Dr Del Real recommendations): -- obtain Fecal elastase levels after the acute inflammation is resolved. -- Elective Cholecystectomy evaluation by surgery for biliary pancreatitis. -- Elective Endoscopic ultrasound ( EUS) - to be referred to [facility] for that test. -- Based on the EUS and above tests, to consider further management of calcific chronic pancreatitis. -- Upon discharge patient to follow up at [facility] for above testing. ( Please give referral prior to discharge). DISCHARGE CONDITION: stable TIME SPENT ON DISCHARGE: 45 minutes. Vital Signs/I&Os Vital Signs Date Time Temp Pulse Resp B/P (MAP) Pulse Ox O2 Delivery O2 Flow Rate FiO2 06/10/19 09:00 62 130/90 06/10/19 06:00 96.6 18 92 06/04/19 10:46 Room Air I&O- Last 24 Hours up to 6 AM 06/10/19 06:00 Intake Total 1560 ml Output Total 150 ml Balance 1410 ml Laboratory Data Labs 24H Laboratory Tests 2 06/10/19 05:39: Nucleated Red Blood Cells % (auto) 0.0, Anion Gap 7L, Glomerular Filtration Rate 45.7, Blood Urea Nitrogen 8, Creatinine 1.21, Sodium Level 136, Potassium Level 3.8, Chloride Level 104, Carbon Dioxide Level 25, Calcium Level 8.5L, Aspartate Amino Transf (AST/SGOT) 11, Alanine Aminotransferase (ALT/SGPT) 14, Alkaline Phosphatase 206H, Total Bilirubin 0.6, Total Protein 6.4, Albumin 2.6L, Albumin/Globulin Ratio 0.68L, Lipase 390 CBC/BMP Laboratory Tests 06/10/19 05:39 Red Blood Count 4.04, Mean Corpuscular Volume 100.0 H, Mean Corpuscular Hemoglobin 32.4, Mean Corpuscular Hemoglobin Concent 32.4, Red Cell Distribution Width 13.3, Calcium Level 8.5 L, Aspartate Amino Transf (AST/SGOT) 11, Alanine Aminotransferase (ALT/SGPT) 14, Alkaline Phosphatase 206 H, Total Bilirubin 0.6, Total Protein 6.4, Albumin 2.6 L FSBS Item Value Date Time Lipase 390 U/L 06/10/19 0539 Lipase 2930 U/L H 06/05/19 175 Amylase Level 317 U/L H 06/05/19 175 Triglycerides Level 112 MG/DL 06/06/19 0626 Total Cholesterol 174 MG/DL 06/06/19 0626 LDL Cholesterol 87 MG/DL 06/06/19 0626 Aspartate Amino Transf (AST/SGOT) 8 U/L 06/05/19 1759 Alanine Aminotransferase (ALT/SGPT) 16 U/L 06/05/19 1759 Alkaline Phosphatase 236 U/L H 06/05/19 1759 Calcium Level 10.6 MG/DL H 06/05/19 0500 Sodium Level 129 MEQ/L L 06/03/19 1232 Chloride Level 90 MEQ/L L 06/03/19 1232 Blood Urea Nitrogen 25 MG/DL H 06/03/19 1232 Creatinine 1.85 MG/DL H 06/03/19 1232 Calcium Level 12.0 MG/DL H 06/03/19 1232 Albumin 3.1 GM/DL L 06/03/19 1232 Thyroid Stimulating Hormone (TSH) 2.150 uIU/ML 06/03/19 1232 Parathyroid Hormone (Intact) 9.8 PG/ML L 06/03/19 1232 Albumin (%) 45.9 % L 06/04/19 0638 Albumin (PEP) 3.21 GM/DL L 06/04/19 0638 Whole Blood Ionized Calcium 5.8 MG/DL H 06/04/19 0917 Ybvnq-4-Samjrhhlm 0.45 GM/DL H 06/04/19 0638 Dzghq-9-Ynrkpyqrk (%) 6.4 % H 06/04/19 0638 Veizx-6-Gxcqagber (%) 12.5 % H 06/04/19 0638 Cthq-9-Zvkjpkfq 0.93 GM/DL H 06/04/19 0638 Nlye-3-Nscacrha (%) 13.3 % H 06/04/19 0638 Vitamin D 1,25-Dihydroxy 119.0 pg/mL H 06/04/19 0638 Urine Random Osmolality 327 MOSM/KG L 06/05/19 0815 Urine Total Protein mg/dL 30.8 MG/DL H 06/05/19 0815 Urine Free [place] Light Chains 277.00 mg/L H 06/05/19 0815 Urine Free [place] Light Chains 34.50 mg/L H 06/05/19 0815 Urine Free [place]/Lambda Ratio 24 Hr 8.03 06/05/19 0815 Free [place] Light Chains, Quant 69.7 mg/L H 06/04/19 0600 Free Lambda Light Chains, Quant 74.5 mg/L H 06/04/19 0600 Result Comment: BETA-GAMMA BRIDGE PATTERN NOTED. THIS MAY BE ASSOCIATED WITH CIRRHOSIS, SOME MALIGNANCIES AND INFLAMMATORY DISEASES. REFER TO REFERENCE RANGES Microbiology Microbiology 06/05/19 Respiratory Virus Panel (PCR) (JAY) - Final, Complete Discharge Medications Scheduled Calcitonin [place] (Calcitonin-[place]) 3.7 Ml [place].pump, 1 SPRAY NA DAILY one spray alternating nostril once a day Cholecalciferol (Vitamin D3) (Vitamin D3) 2,000 Unit Cap, 1 CAP PO DAILY, (Reported) Dorzolamide/Timolol/Pf (Cosopt Pf Eye Drops) 1 Belkis Belkis, 1 DROP OU BID, (Reported) Hydralazine HCl (Hydralazine HCl) 10 Mg Tablet, 1 TAB PO TID, (Reported) Levothyroxine Sodium (Levothyroxine Sodium) 25 Mcg Tab, 1 TAB PO DAILY, (Reported) Metoprolol Tartrate (Metoprolol Tartrate) 25 Mg Tab, 50 MG PO QAM, (Reported) Metoprolol Tartrate (Metoprolol Tartrate) 25 Mg Tablet, 25 MG PO QPM, (Reported) Omeprazole (Omeprazole) 40 Mg Cap, 40 MG PO DAILY, (Reported) Rivaroxaban (Xarelto) 15 Mg Tab, 15 MG PO DAILY, (Reported) Spironolactone (Spironolactone) 25 Mg Tab, 25 MG PO DAILY, (Reported) Allergies Coded Allergies: No Known Allergies (Unverified , 06/03/19) KELVIN GARCIA DO Jun 10, 2019 10:58
== END 2019-06-10 13:37 | disposition home or self-care (01) | DRG 640 ==
LOC: M ED 10:51 → M ED INP 23:22 → M ICU 06-04 10:57 → M MSPAV 06-05 14:30
PROVIDERS: ADMIT Internal Medicine; ATTEND Family Medicine
DX: E83.52 Hypercalcemia (principal); K85.90 Acute pancreatitis without necrosis or infection, unspecified; I50.32 Chronic diastolic (congestive) heart failure; E87.1 Hypo-osmolality and hyponatremia; I13.0 Hypertensive heart and chronic kidney disease with heart failure and stage 1 through stage 4 chronic kidney disease, or unspecified chronic kidney disease; N18.3 Chronic kidney disease, stage 3 (moderate); E03.9 Hypothyroidism, unspecified; K58.9 Irritable bowel syndrome, unspecified; H40.9 Unspecified glaucoma; K21.9 Gastro-esophageal reflux disease without esophagitis; I48.91 Unspecified atrial fibrillation; M81.0 Age-related osteoporosis without current pathological fracture; Z79.01 Long term (current) use of anticoagulants; Z79.899 Other long term (current) drug therapy

== ENCOUNTER 2019-06-30 15:25 | Inpatient (IN) | payer MEDICARE ==
[~2019-06-30] VITALS: Ht 160 cm; Wt 83.1 kg
[~2019-06-30 15:25] MED LIST changes: +CALC20SPR; +HYDR10TAB PO
[2019-06-30] MEDS ORDERED: NS 1,000 ML IV SCH ×2 (16:17→20:30)
[2019-06-30 16:30] LABS: BASO # 0.1 10^3/uL (0.0-0.2); EOS # 0.4 10^3/uL (0.0-0.50); EOS % 4.2 % (0.0-3.0); HEMATOCRIT 38.4 % (36.0-47.0); HEMOGLOBIN 12.7 g/dl (12.0-15.5); LYMPH # 1.4 10^3/uL (1.5-4.5); LYMPH % 13.3 % (24.0-44.0); MEAN CORPUSCULAR HEMOGLOBIN 32.4 pg (27.0-33.0); MEAN CORPUSCULAR HGB CONC 33.1 g/dl (32.0-36.5); MONO # 1.1 10^3/uL (0.0-0.8); MONO % 10.3 % (0.0-5.0); NEUTROPHILS # 7.2 10^3/uL (1.8-7.7); NEUTROPHILS % 70.6 % (36.0-66.0); PLATELET COUNT, AUTOMATED 383 10^3/uL (150-450); RED BLOOD COUNT 3.92 10^6/uL (4.00-5.40); WHITE BLOOD COUNT 10.2 10^3/uL (4.0-10.0)
[2019-06-30] MEDS ORDERED: ASPIRIN 81 MG CHEW TABLET PO ONE (16:30)
[2019-06-30] MEDS ORDERED: NS 500 ML IV ONE (16:30)
[2019-06-30 16:34] LABS: INR 2.73; PROTHROMBIN TIME 28.8 SECONDS (11.8-14.0)
[2019-06-30 16:49] LABS: ALBUMIN 2.8 GM/DL (3.2-5.2); ALT/SGPT 19 U/L (12-78); BILIRUBIN,DIRECT 0.2 MG/DL (0.0-0.2); BILIRUBIN,TOTAL 0.4 MG/DL (0.2-1.0); BLOOD UREA NITROGEN 20 MG/DL (7-18); CARBON DIOXIDE LEVEL 27 MEQ/L (21-32); CHLORIDE LEVEL 99 MEQ/L (98-107); CK-MB VALUE MASS < 1.0 NG/ML (<3.6); CPK CREATINE PHOSPHOKINASE 68 U/L (26-192); CREATININE FOR GFR 1.78 MG/DL (0.55-1.30); GLOMERULAR FILTRATION RATE 29.3 (>39); GLUCOSE, FASTING 127 MG/DL (70-100); LIPASE 700 U/L (73-393); MB/CK RELATIVE INDEX 1.47 (< OR =4); NT-PRO BNP 5736 PG/ML (<450); POTASSIUM SERUM 4.3 MEQ/L (3.5-5.1); SODIUM LEVEL 134 MEQ/L (136-145); TOTAL PROTEIN 7.1 GM/DL (6.4-8.2); TROPONIN I < 0.02 NG/ML (< 0.10)
[2019-06-30] MEDS ORDERED: CALC20SPR (16:49)
[2019-06-30] MEDS ORDERED: POTA10TA16 PO (16:49)
[2019-06-30] MEDS ORDERED: TORS10TA3 PO (16:49)
[2019-06-30] MEDS ORDERED: ATROPINE SULF 1MG/10ML SYRINGE (J0461) IV PRN (18:15)
--- NOTE | 2019-06-30 18:34 | HPEPDOC ---
General Date of Admission 06/30/19 Date of Service: Jun 30, 2019 Chief Complaint The patient is a 78-year-old female admitted with a reason for visit of Cardiac Problem. History of Present Illness 78-year-old female with past medical history of hypertension, hypothyroidism, atrial fibrillation on xarelto, osteoporosis, chronic pancreatitis, and diastolic congestive heart failure presented to the ER with the chief complaint of lightheadedness, dizziness of sudden onset. She states that she was feeling well up until after she took her medications this afternoon. She denied any complaints of chest pain, palpitations, abdominal pain, or any nausea/vomiting/diarrhea. In addition, the patient denied any recent tick exposure. In the ER, patient was noted to be in atrial fibrillation with slow ventricular response with a heart rate in the 40s. In addition, the patient was also noted to have an acute kidney injury. She will be admitted to the hospitalist service for further evaluation and management. Home Medications Scheduled Calcitonin [place] (Calcitonin-[place]) 3.7 Ml [place].pump, 1 SPRAY NA DAILY, (Reported) ALTERNATES NOSTRILS, RIGHT NOSTRIL 06/29 Cholecalciferol (Vitamin D3) (Vitamin D3) 2,000 Unit Cap, 2,000 UNIT PO DAILY, (Reported) Dorzolamide/Timolol/Pf (Cosopt Pf Eye Drops) 1 Belkis Belkis, 1 DROP OU BID, (Reported) Hydralazine HCl (Hydralazine HCl) 10 Mg Tablet, 10 MG PO TID, (Reported) Levothyroxine Sodium (Levothyroxine Sodium) 25 Mcg Tab, 25 MCG PO DAILY, (Reported) Metoprolol Tartrate (Metoprolol Tartrate) 25 Mg Tab, 50 MG PO QAM, (Reported) Omeprazole (Omeprazole) 40 Mg Cap, 40 MG PO DAILY, (Reported) Potassium Chloride (Potassium Chloride) 10 Meq Tab.er.prt, 10 MEQ PO BID, (Reported) Rivaroxaban (Xarelto) 15 Mg Tab, 15 MG PO DAILY, (Reported) Spironolactone (Spironolactone) 25 Mg Tab, 25 MG PO DAILY, (Reported) Torsemide (Torsemide) 10 Mg Tablet, 10 MG PO DAILY, (Reported) Allergies Coded Allergies: No Known Allergies (Unverified , 06/03/19) Past Medical History Medical History As noted in HPI Social History * Smoker: Denies Alcohol: occationally Drugs: denies Review of Systems Other systems 10 point review of systems negative unless otherwise specified in HPI. Physical Examination General Exam: Positive: Alert, Cooperative, No Acute Distress ENT Exam: Positive: Atraumatic, Mucous membr. moist/pink Neck Exam: Negative: JVD Chest Exam: Positive: Clear to auscultation, Normal air movement Heart Exam: Positive: Bradycardic, Irregular Rhythm, Normal S1, Normal S2 Abdomen Exam: Positive: Soft; Negative: Tenderness Extremity Exam: Negative: Tenderness Psych Exam: Positive: Oriented x 3 Vital Signs Vital Signs Date Time Temp Pulse Resp B/P (MAP) Pulse Ox O2 Delivery O2 Flow Rate FiO2 06/30/19 17:15 63 18 107/62 (77) 95 06/30/19 15:26 97.5 Room Air Laboratory Data Labs 24H Laboratory Tests 2 06/30/19 15:53: Immature Granulocyte % (Auto) 0.6, White Blood Count 10.2H, Red Blood Count 3.92L, Hemoglobin 12.7, Hematocrit 38.4, Mean Corpuscular Volume 98.0H, Mean Corpuscular Hemoglobin 32.4, Mean Corpuscular Hemoglobin Concent 33.1, Red Cell Distribution Width 13.7, Platelet Count 383, Neutrophils (%) (Auto) 70.6H, Lymphocytes (%) (Auto) 13.3L, Monocytes (%) (Auto) 10.3H, Eosinophils (%) (Auto) 4.2H, Basophils (%) (Auto) 1.0, Neutrophils # (Auto) 7.2, Lymphocytes # (Auto) 1.4L, Monocytes # (Auto) 1.1H, Eosinophils # (Auto) 0.4, Basophils # (Auto) 0.1, Nucleated Red Blood Cells % (auto) 0.0, Prothrombin Time 28.8H, Prothromb Time International Ratio 2.73, Anion Gap 8, Glomerular Filtration Rate 29.3L, Calcium Level 10.0, Aspartate Amino Transf (AST/SGOT) 16, Alanine Aminotransferase ( ALT/SGPT) 19, Alkaline Phosphatase 230H, Total Bilirubin 0.4, Direct Bilirubin 0.2, Total Creatine Kinase 68, Creatine Kinase MB < 1.0, Creatine Kinase MB Relative Index 1.47, Troponin I < 0.02, WT-Sya-N-Type Natriuretic Peptide 5736H, Total Protein 7.1, Albumin 2.8L, Albumin/Globulin Ratio 0.65L, Lipase 700H, Thyroid Stimulating Hormone (TSH) 4.580H CBC/BMP Laboratory Tests 06/30/19 15:53 Red Blood Count 3.92 L, Mean Corpuscular Volume 98.0 H, Mean Corpuscular Hemoglobin 32.4, Mean Corpuscular Hemoglobin Concent 33.1, Red Cell Distribution Width 13.7, Neutrophils (%) (Auto) 70.6 H, Lymphocytes (%) (Auto) 13.3 L, Monocytes (%) (Auto) 10.3 H, Eosinophils (%) (Auto) 4.2 H, Basophils (%) (Auto) 1.0, Neutrophils # (Auto) 7.2, Lymphocytes # (Auto) 1.4 L, Monocytes # (Auto) 1.1 H, Eosinophils # (Auto) 0.4, Basophils # (Auto) 0.1 Plan / VTE VTE Prophylaxis Ordered?: Yes Plan Plan Bradycardia possibly 2/2 Metoprolol Use vs SSS We will hold the patient's Metoprolol at this time Monitor on Telemetry in the ICU Patient currently asymptomatic at rest We will order a 2D ECHO PRN IV Atropine ordered for symptomatic bradycardia If the patient's bradycardia does not resolve with metoprolol discontinuation, we will reach out to cardiology regarding possible pacemaker placement Chronic Kidney Disease Stage IIIB Serum Cr appears mildly elevated (1.78) compared to baselined (1.2-1.4) Nephrotoxins held Gentle IVF Hydration Follow up BMP in the AM Hypercalcemia of unclear etiology Continue calcitonin IV fluid hydration ordered We will follow-up with a BMP, ionized calcium level in the morning Patient, family counseled at length regarding possible differential diagnoses including possible underlying malignancy. They have verbalized understanding of the same, and understand the need to follow up as an outpatient for further malignancy workup, including an EUS to be done for further evaluation of chronic pancreatitis. Chronic pancreatitis Patient denies any complaints of abdominal pain at this time Diastolic congestive heart failure, not decompensated The patient actually appears to be on the dehydrated side, diuretic therapy will be held History of atrial fibrillation Continue Xarelto GERD Cont PPI Hypothyroidism TSH noted to be elevated, will f/u Free T3, T4 DVT Prophylaxis On ADAMARIS Kidd MD Jun 30, 2019 18:34
[2019-06-30 19:49] LABS: FREE T4 1.35 NG/DL (0.76-1.46)
--- NOTE | 2019-06-30 19:49 | REP ---
CHEST, SINGLE VIEW: Single view of the chest was performed. There is mild cardiomegaly. There is no acute infiltrate. There is calcification of the thoracic aorta. IMPRESSION: No acute infiltrate. Mild cardiomegaly. Electronically Signed by Fred Lozada MD 07/01/2019 10:08 A
[2019-06-30 19:54] VITALS: BP 112/58
--- NOTE | 2019-06-30 21:48 | ECGEPIP ---
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
[2019-06-30 22:00] VITALS: BP 110/61
[2019-06-30 23:00] VITALS: BP 107/51
[2019-07-01] VITALS (16 sets, daily range): BP systolic 99–149; BP diastolic 51–87
[2019-07-01 06:02] LABS: HEMATOCRIT 33.9 % (36.0-47.0); HEMOGLOBIN 11.2 g/dl (12.0-15.5); MEAN CORPUSCULAR HEMOGLOBIN 32.5 pg (27.0-33.0); MEAN CORPUSCULAR VOLUME 98.3 fl (80.0-96.0); PLATELET COUNT, AUTOMATED 313 10^3/uL (150-450); RED BLOOD COUNT 3.45 10^6/uL (4.00-5.40); WHITE BLOOD COUNT 7.6 10^3/uL (4.0-10.0)
[2019-07-01 06:12] LABS: CALCIUM LEVEL 9.2 MG/DL (8.8-10.2); CREATININE FOR GFR 1.57 MG/DL (0.55-1.30); GLOMERULAR FILTRATION RATE 33.8 (>39); MAGNESIUM LEVEL 1.6 MG/DL (1.8-2.4); POTASSIUM SERUM 3.5 MEQ/L (3.5-5.1)
[2019-07-01] MEDS: LEVOTHYROXINE 25MCG TABLET (0.025MG) PO SCH (06:27)
[2019-07-01] MEDS ORDERED: MAGNESIUM OXIDE 400 MG TAB (MAG-OX) PO ONE (08:00)
[2019-07-01] MEDS ORDERED: POTASSIUM CHLORIDE 10 MEQ SR TABLET PO ONE (08:00)
[2019-07-01] MEDS ORDERED: RIVAROXABAN 15 MG TAB (XARELTO) PO SCH (08:00)
[2019-07-01] MEDS: OMEPRAZOLE 20 MG CAP PO SCH (08:25)
[2019-07-01] MEDS: VITAMIN D 1,000 INTERNATIONAL UNITS TABLET PO SCH (08:26)
[2019-07-01] MEDS: CALCITONIN NASAL SPRAY 3.7 ML BTL SCH (08:27)
--- NOTE | 2019-07-01 12:46 | IPNPDOC ---
Subjective Date Seen The patient was seen on 07/01/19. Subjective Chief Complaint/HPI Patient seen and examined at the bedside. Her heart rate remains within the mid 40s range. Remains asymptomatic. No acute overnight events noted otherwise. Objective Physical Examination General Exam: Positive: Alert, Cooperative, No Acute Distress ENT Exam: Positive: Atraumatic, Mucous membr. moist/pink Neck Exam: Negative: JVD Chest Exam: Positive: Clear to auscultation, Normal air movement Heart Exam: Positive: Bradycardic, Irregular Rhythm, Normal S1, Normal S2 Abdomen Exam: Positive: Soft; Negative: Tenderness Extremity Exam: Negative: Tenderness Psych Exam: Positive: Oriented x 3 Assessment /Plan Plan/VTE VTE Prophylaxis Ordered?: Yes Plan Bradycardia possibly 2/2 PO Metoprolol, Timolol Eye Drop Use vs SSS Continue to hold Timolol, Metoprolol at this time Patient currently asymptomatic at rest 2D ECHO pending Patient heart rate remains in the mid 40s this AM, in A. fib PRN IV Atropine ordered for symptomatic bradycardia I did discuss the case with Dr. Serrato this morning, regarding pacemaker indication---He has advised that we continue to monitor the patient on telemetry for another 24 hours to see if her heart rate improves. If it does not, we will consider pacemaker placement. Chronic Kidney Disease Stage IIIB Serum Cr improved this AM (1.5), baseline (1.2-1.4) Nephrotoxins held s/p IVF Hydration We will continue to monitor Hypercalcemia of unclear etiology Continue calcitonin s/p IV fluid hydration Patient, family counseled at length regarding possible differential diagnoses including possible underlying malignancy. They have verbalized understanding of the same, and understand the need to follow up as an outpatient for further malignancy workup, including an EUS to be done for further evaluation of chronic pancreatitis. Serum Ca wnl this AM Chronic pancreatitis Patient denies any complaints of abdominal pain at this time Diastolic congestive heart failure, not decompensated History of atrial fibrillation Xarelto on hold for possible pacemaker placement GERD Cont PPI Hypothyroidism Cont Levothyroxine TSH noted to be elevated, will f/u Free T4 wnl F/U TFT's in 6-8 wks DVT Prophylaxis SCDs/TEDs VS, I&O, 24H, Fishbone Vital Signs/I&O Vital Signs Date Time Temp Pulse Resp B/P (MAP) Pulse Ox O2 Delivery O2 Flow Rate FiO2 07/01/19 10:00 45 14 106/68 (81) 98 07/01/19 08:00 97.9 06/30/19 15:26 Room Air I&O- Last 24 Hours up to 6 AM0 07/01/19 06:00 Intake Total 1260 ml Output Total 325 ml Balance 935 ml Laboratory Data 24H LABS Laboratory Tests 2 06/30/19 15:53: Immature Granulocyte % (Auto) 0.6, White Blood Count 10.2H, Red Blood Count 3.92L, Hemoglobin 12.7, Hematocrit 38.4, Mean Corpuscular Volume 98.0H, Mean Corpuscular Hemoglobin 32.4, Mean Corpuscular Hemoglobin Concent 33.1, Red Cell Distribution Width 13.7, Platelet Count 383, Neutrophils (%) (Auto) 70.6H, Lymphocytes (%) (Auto) 13.3L, Monocytes (%) (Auto) 10.3H, Eosinophils (%) (Auto) 4.2H, Basophils (%) (Auto) 1.0, Neutrophils # (Auto) 7.2, Lymphocytes # (Auto) 1.4L, Monocytes # (Auto) 1.1H, Eosinophils # (Auto) 0.4, Basophils # (Auto) 0.1, Nucleated Red Blood Cells % (auto) 0.0, Prothrombin Time 28.8H, Prothromb Time International Ratio 2.73, Anion Gap 8, Glomerular Filtration Rate 29.3L, Calcium Level 10.0, Aspartate Amino Transf (AST/SGOT) 16, Alanine Aminotransferase (ALT/SGPT) 19, Alkaline Phosphatase 230H, Total Bilirubin 0.4, Direct Bilirubin 0.2, Total Creatine Kinase 68, Creatine Kinase MB < 1.0, Creatine Kinase MB Relative Index 1.47, Troponin I < 0.02, JO-Uwr-J-Type Natriuretic Peptide 5736H, Total Protein 7.1, Albumin 2.8L, Albumin/Globulin Ratio 0.65L, Lipase 700H, Thyroid Stimulating Hormone (TSH) 4.580H, Free Thyroxine 1.35, Free Triiodothyronine 2.0L 07/01/19 05:38: Nucleated Red Blood Cells % (auto) 0.0, Anion Gap 8, Glomerular Filtration Rate 33.8L, Calcium Level 9.2, Blood Urea Nitrogen 18, Creatinine 1.57H, Sodium Level 136, Potassium Level 3.5, Chloride Level 104, Carbon Dioxide Level 24, Whole Blood Ionized Calcium 4.6, Magnesium Level 1.6L CBC/BMP Laboratory Tests 06/30/19 15:53 Red Blood Count 3.92 L, Mean Corpuscular Volume 98.0 H, Mean Corpuscular Hemoglobin 32.4, Mean Corpuscular Hemoglobin Concent 33.1, Red Cell Distribution Width 13.7, Neutrophils (%) (Auto) 70.6 H, Lymphocytes (%) (Auto) 13.3 L, Monocytes (%) (Auto) 10.3 H, Eosinophils (%) (Auto) 4.2 H, Basophils (%) (Auto) 1.0, Neutrophils # (Auto) 7.2, Lymphocytes # (Auto) 1.4 L, Monocytes # (Auto) 1.1 H, Eosinophils # (Auto) 0.4, Basophils # (Auto) 0.1 07/01/19 05:38 Red Blood Count 3.45 L, Mean Corpuscular Volume 98.3 H, Mean Corpuscular Hemoglobin 32.5, Mean Corpuscular Hemoglobin Concent 33.0, Red Cell Distribution Width 13.8, Calcium Level 9.2 ADAMARIS SERRANO MD Jul 01, 2019 12:46
[2019-07-02] VITALS (9 sets, daily range): BP systolic 127–167; BP diastolic 61–83
[2019-07-02 05:10] LABS: HEMATOCRIT 32.9 % (36.0-47.0); HEMOGLOBIN 10.8 g/dl (12.0-15.5); MEAN CORPUSCULAR HEMOGLOBIN 31.8 pg (27.0-33.0); MEAN CORPUSCULAR HGB CONC 32.8 g/dl (32.0-36.5); MEAN CORPUSCULAR VOLUME 96.8 fl (80.0-96.0); PLATELET COUNT, AUTOMATED 318 10^3/uL (150-450)
[2019-07-02 05:24] LABS: CALCIUM LEVEL 9.6 MG/DL (8.8-10.2); CREATININE FOR GFR 1.37 MG/DL (0.55-1.30); GLOMERULAR FILTRATION RATE 39.6 (>39); POTASSIUM SERUM 3.9 MEQ/L (3.5-5.1)
[2019-07-02] MEDS: LEVOTHYROXINE 25MCG TABLET (0.025MG) PO SCH (07:00)
[2019-07-02] MEDS: VITAMIN D 1,000 INTERNATIONAL UNITS TABLET PO SCH (09:35)
[2019-07-02] MEDS: OMEPRAZOLE 20 MG CAP PO SCH (09:35)
[2019-07-02] MEDS: CALCITONIN NASAL SPRAY 3.7 ML BTL SCH (09:35)
--- NOTE | 2019-07-02 11:41 | IPNPDOC ---
Subjective Date Seen The patient was seen on 07/02/19. Subjective Chief Complaint/HPI Patient seen and examined at the bedside. Denies any complaints of chest pain, palpitations, or shortness of breath. Her heart rate remained in the 40s overnight and into this morning. Objective Physical Examination General Exam: Positive: Alert, Cooperative, No Acute Distress ENT Exam: Positive: Atraumatic, Mucous membr. moist/pink Neck Exam: Negative: JVD Chest Exam: Positive: Clear to auscultation, Normal air movement Heart Exam: Positive: Bradycardic, Irregular Rhythm, Normal S1, Normal S2 Abdomen Exam: Positive: Soft; Negative: Tenderness Extremity Exam: Negative: Tenderness Psych Exam: Positive: Oriented x 3 Assessment /Plan Plan/VTE VTE Prophylaxis Ordered?: Yes Plan Bradycardia possibly 2/2 PO Metoprolol, Timolol Eye Drop Use vs SSS Continue to hold Timolol, Metoprolol at this time Patient currently asymptomatic at rest 2D ECHO pending Patient heart rate remains in the mid 40s this AM, in A. fib PRN IV Atropine ordered for symptomatic bradycardia Dr Joy consulted this AM for pacemaker consideration. Chronic Kidney Disease Stage IIIB Serum Cr at baseline Hypercalcemia of unclear etiology Continue calcitonin s/p IV fluid hydration Patient, family counseled at length regarding possible differential diagnoses including possible underlying malignancy. They have verbalized understanding of the same, and understand the need to follow up as an outpatient for further malignancy workup, including an EUS to be done for further evaluation of chronic pancreatitis. Chronic pancreatitis Patient denies any complaints of abdominal pain at this time Diastolic congestive heart failure, not decompensated History of atrial fibrillation Xarelto on hold for possible pacemaker placement GERD Cont PPI Hypothyroidism Cont Levothyroxine TSH noted to be elevated, will f/u Free T4 wnl F/U TFT's in 6-8 wks DVT Prophylaxis SCDs/TEDs VS, I&O, 24H, Fishbone Vital Signs/I&O Vital Signs Date Time Temp Pulse Resp B/P (MAP) Pulse Ox O2 Delivery O2 Flow Rate FiO2 07/02/19 08:00 97.2 44 18 134/63 (86) 97 06/30/19 15:26 Room Air I&O- Last 24 Hours up to 6 AM 07/02/19 05:59 Intake Total 720 ml Output Total 675 ml Balance 45 ml Laboratory Data 24H LABS Laboratory Tests 2 07/02/19 04:45: Nucleated Red Blood Cells % (auto) 0.0, Anion Gap 5L, Glomerular Filtration Rate 39.6, Blood Urea Nitrogen 15, Creatinine 1.37H, Sodium Level 135L, Potassium Level 3.9, Chloride Level 106, Carbon Dioxide Level 24, Calcium Level 9.6 CBC/BMP Laboratory Tests 07/02/19 04:45 Red Blood Count 3.40 L, Mean Corpuscular Volume 96.8 H, Mean Corpuscular Hemoglobin 31.8, Mean Corpuscular Hemoglobin Concent 32.8, Red Cell Distribution Width 14.1, Calcium Level 9.6 ADAMARIS SERRANO MD Jul 02, 2019 11:41
--- NOTE | 2019-07-02 23:54 | CR ---
DATE OF CONSULTATION: 07/02/2019 CARDIOLOGY CONSULTATION REFERRING PHYSICIAN: Dr. Chuy Ramirez INDICATION: High-grade atrioventricular (AV) block and chronic atrial fibrillation. HISTORY: This 78-year-old mother of four grown children, resident of [place], [place] continues to live and care for her demented elderly . She has considerable assistance with family members who live nearby. Since her hip surgery in 2012, she has had gradually increasing difficulty ambulating. For the past 6 months, she has been using a walker and has been chiefly homebound. Walks no farther than 25-50 feet, limited by shortness of breath and fatigue. She is well known to Dr. Cordova, [facility] with chronic hypertension, complicated by abnormal EKG and atrial fibrillation and heart failure (diastolic). She has been on combination negative chronotropic therapy and anticoagulant therapy for many years and only recently her dosage of beta jose j had been increased when her ventricular response was recorded at 110 beats per minute in the office. June 30, 2019 she was referred to the emergency room after home physical therapist found her heart rate to be only 40 beats per minute. Her beta jose j therapy had been withheld and despite 48 hours, her ventricular rate has remained slow, leading to her current cardiology pacing service consultation. OTHER CARDINAL CARDIAC SYMPTOMS: Apparently has had a problem with chest pain that led to cardiac catheterization at [facility] in 2017, apparently did not show any significant coronary obstruction. She is aware of her abnormal EKG. Has a problem with irritable bowel syndrome, but no heartburn, dysphagia or recent gastrointestinal (GI) bleeding. Two years ago, on her oral anticoagulant, she had melena and investigations lead to discovery of gastric ulceration. Past year or so on Xarelto, no further GI bleeding. She has never been a smoker, but has had a longstanding weight problem (weight was 120 pounds at age 17, maximum weight 210 pounds several years ago. Has lost 40 pounds in the past 2 years). Has only occasional dry cough. No history of hemoptysis or pneumonia. Has noticed increasing effort dyspnea the past 6 months or so. Longstanding history of obstructive sleep apnea, using continuous positive airway pressure (CPAP). Unaware of a history of rheumatic fever, but echocardiographic evidence of at least mild aortic stenosis with mild mitral insufficiency dating back to December 2012. Treated hypertension since her 50s with secondary abnormal EKG and atrial fibrillation. Has been diagnosed with congestive heart failure (diastolic dysfunction), on torsemide for at least the past 5-10 years. Has never had any awareness of her heart action despite her longstanding history of atrial fibrillation. At this point, will have a caffeinated soda but avoids other sources of caffeine. Admits to drinking one or two alcoholic beverages on a regular basis. Known hypothyroidism, on replacement therapy for less than the past 10 years. Does not use [id number] medications. The past 2 months, she does admit to having some positional lightheadedness. Last year, she apparently fell on two occasions without any clear etiology being determined. She is uncertain whether she actually lost consciousness. History of hypercalcemia with visual disturbance but no lateralizing neurological deficits, flank pain, hematuria or blue toe syndrome. No apparent claudication. Unaware of varicose veins or phlebitis, but has had lower leg swelling, especially since bilateral knee surgeries. CORONARY RISK FACTORS: Advanced age. Postmenopausal status. Chronic hypertension. Obesity. No history of diabetes or hypercholesterolemia. OTHER PAST MEDICAL/SURGICAL HISTORY: Four normal vaginal deliveries. Prior colonic polypectomy. Gout. 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 Macular degeneration. Obstructive sleep apnea. Prior cataracts. Prior glaucoma. Irritable bowel syndrome. Hypothyroidism. Prior pancreatitis. Gastroesophageal reflux disease. SYSTEMS REVIEW: Has reduced visual acuity and reduced hearing. Weight loss 40 pounds the past 2 years, reduced appetite. Intermittent bowel irregularity and cramping. No recent GI bleeding. Nocturia with occasional stress incontinence. Arthralgia. All other systems review is negative. MEDICATIONS: At the time of her admission, she was on metoprolol tartrate 25 mg daily, Xarelto 50 mg daily, torsemide 10 mg daily, spironolactone 25 mg daily, hydralazine 10 mg three times a day, omeprazole 40 mg daily, KCl 10 mEq twice a day, dorzolamide/Timolol eye drops one drop each eye twice a day, vitamin D3 2000 international units daily and calcitonin 3.7 mL spray pump one spray alternating nostrils daily, levofloxacin 25 mcg daily. ALLERGIES: None known. PHYSICAL EXAMINATION: Constitutional: Obese, pleasant elderly lady, sat comfortably in the chair. No obvious pallor. Vital signs: Heart rate 34 beats per minute and irregular, blood pressure 148/60 right arm lying, 154/60 right arm sitting, 158/68 left arm sitting, respiratory rate 18, oxygen (O2) saturation 96% on room air. Afebrile. Weight 185 pounds, height 63 inches, body mass index (BMI) 32.8. Eyes: Senile arcus with no pallor or icterus. No petechiae. No xanthelasma. ENT/mouth: Upper denture. Normal oral moisture. No central cyanosis. Neck: Trachea midline. Neck veins were 2-3 cm above the sternal angle. Thyroid did not appear to be enlarged. Respiratory: Increased anteroposterior chest diameter with fair air entry over both lung ho with bibasilar inspiratory crepitations. No expiratory rhonchi. Cardiovascular: Apical impulse at the midclavicular line fifth intercostal space. Heart sounds were somewhat distant and variable, unable to detect gallop or rub. Has a systolic ejection murmur that was somewhat harsh and varied in intensity with her varying heart rate. No diastolic murmur. Brisk carotid upstrokes with variable but seemingly increased pulse volume. Transmitted bruit from the precordium. Upper extremity and pedal pulses were symmetrical and normal. Her abdominal aorta was not palpable. No bruits. Femoral pulses were difficult to palpate because of her obesity and pannus. Has plus/minus pitting one half up both lower legs with obvious bilateral knee incisions. No varicose veins. GI: Soft, obese abdomen with lower abdominal pannus. Normal bowel sounds. Unable to detect hepatosplenomegaly. Rectal examination not indicated. Musculoskeletal: Some proximal muscle weakness but normal tone. Surgical incisions as mentioned, but no other obvious joint deformity. Spine curvature appeared to be normal. Neuro/psych: Fairly bright elderly lady with normal symmetrical eye, facial, and extremity movements. No involuntary movements. Affect was appropriate. She was orientated and gave a fairly good history, did have problems with her memory for remote events. Skin: No pallor, icterus or ecchymotic lesions. CHEST X-RAY: Reviewed independently from the time of her admission; this shows fairly gross cardiomegaly with somewhat unfolded thoracic aorta and somewhat plump pulmonary vasculature with increased interstitial markings. No pleural effusion. CHEST CT SCAN WITHOUT CONTRAST, June 05, 2019: Reviewed independently shows obvious atherosclerotic change of her thoracic aorta, aortic root appeared to be upper limits of normal. Pulmonary trunk was slightly dilated at 2.9 cm. Left atrium was at least mildly dilated. Normal appearing left ventricular size with borderline dilated right ventricle and at least moderately large right atrium, inferior vena cava (IVC) diameter measured 2.1 cm. Calcification of her aortic valve and some mitral annular thickening, some coronary artery calcification. Lung ho showed old granulomatous changes, but good air entry over both lung zones with no significant mass or pleural effusion. Hilar lymphadenopathy with calcification. Some splenic calcification with calcifications of the body of the pancreas and gallstones. EKG: At the time of her admission June 30, 2019, her EKG showed underlying atrial fibrillation with slow ventricular response averaging 50 beats per minute (bpm), left axis deviation with left bundle branch block. [employer] ATTENDANT: Despite withdrawing her low-dose metoprolol, on the monitor she has had evidence of high-grade AV block with heart rates as slow as 28 beats per minute. This has persisted off the beta jose j 48 hours. With low level of activity, she has been asymptomatic. LABORATORY DATA: Hemoglobin 10.8 with normal white blood cell count and platelet count. Her PT/INR on admission was 28.8, INR 2.7. Electrolytes were in balance with BUN 15, creatinine 1.37, GFR 40, fasting glucose 103, albumin 2.8. Pro BNP level on admission measured 5736. Troponin I levels were negative. Ultrasensitive TSH was marginally increased at 4.6 with normal free thyroxine. Alkaline phosphatase was increased but other liver function studies were normal. IMPRESSION/PLAN: 1. High-grade AV block: Apparently related to degenerative conduction tissue disease without recognizable reversible factor at this time. We have recommended implantation of a permanent single chamber ventricular demand pacemaker under monitored local anesthesia tomorrow morning. The procedure, indications and potential risks were discussed with the patient and her granddaughter. They appear to understand and agree. 2. Chronic atrial fibrillation: Has had echocardiographic and CT scan evidence of significant left atrial enlargement and documented chronic atrial fibrillation for many years. Likely on the basis of hypertensive heart disease and her obesity with LV diastolic dysfunction leading to left atrial enlargement. She has been off her Xarelto for the past 48 hours. We hope to resume her oral anticoagulation after 24 hours of her surgery. Fortunately, has been free of any symptom or sign of systemic embolic phenomenon. 3. Abnormal EKG/left bundle branch block: Again, a reflection of degenerative conduction tissue disease prompted by her chronic hypertension. Previous cardiac catheterization failed to show any obstructive coronary lesions. 4. Hypertensive heart disease (benign with heart failure)/heart failure/acute on chronic): Gradually increasing shortness of breath and ease of fatigue, likely a manifestation of her significant bradyarrhythmia and secondary decompensation. I anticipate she will be able to tolerate the surgical procedure without difficulty all the same. Has a significantly increased pulse pressure as we would expect with her bradyarrhythmia. It is hard to believe that her left ventricular systolic function is not intact given her asymptomatic status with her bradycardia. Renal function as described. Electrolytes were in balance. Currently off her antihypertensive therapy, but I am confident this can be resumed once her pacemaker is in place. 5. Mitral and aortic valve disorder (nonrheumatic): Previous echocardiographic studies have shown at least mild aortic stenosis and mild mitral insufficiency. As mentioned, it is unlikely she has significant left ventricular outflow tract obstruction given her increased pulse pressure. No symptoms or signs of endocarditis. I will plan on following her closely with you temporarily until her pacemaker is in place, then she will resume her customary cardiology followup well with Dr. Cordova. CONCHITA
[2019-07-03] VITALS: BP 144/69
[2019-07-03 04:00] VITALS: BP 154/66
[2019-07-03 05:02] LABS: HEMATOCRIT 33.9 % (36.0-47.0); MEAN CORPUSCULAR HEMOGLOBIN 32.3 pg (27.0-33.0); MEAN CORPUSCULAR HGB CONC 32.4 g/dl (32.0-36.5); MEAN CORPUSCULAR VOLUME 99.4 fl (80.0-96.0); PLATELET COUNT, AUTOMATED 306 10^3/uL (150-450); RED BLOOD COUNT 3.41 10^6/uL (4.00-5.40); WHITE BLOOD COUNT 7.1 10^3/uL (4.0-10.0)
[2019-07-03 05:14] LABS: INR 1.15; PROTHROMBIN TIME 14.4 SECONDS (11.8-14.0)
[2019-07-03 05:19] LABS: CALCIUM LEVEL 9.6 MG/DL (8.8-10.2); CREATININE FOR GFR 1.46 MG/DL (0.55-1.30); GLOMERULAR FILTRATION RATE 36.8 (>39)
[2019-07-03] MEDS ORDERED: LR 1,000 ML IV SCH (06:00)
[2019-07-03] MEDS: LEVOTHYROXINE 25MCG TABLET (0.025MG) PO SCH (06:41)
[2019-07-03 08:00] VITALS: BP 122/67
[2019-07-03] MEDS: CALCITONIN NASAL SPRAY 3.7 ML BTL SCH (09:34)
[2019-07-03] MEDS: VITAMIN D 1,000 INTERNATIONAL UNITS TABLET PO SCH (09:34)
[2019-07-03] MEDS: OMEPRAZOLE 20 MG CAP PO SCH (09:34)
[2019-07-03] MEDS ORDERED: PROPOFOL 500 MG/50 ML VIAL As Ordered ONE (09:59)
[2019-07-03] MEDS ORDERED: LIDOCAINE 2% INJ 100 MG/5 ML SDV (FOR ANES.) As Ordered ONE (09:59)
[2019-07-03] MEDS ORDERED: fentaNYL 100 MCG/2 ML INJECTION (J3010) As Ordered ONE (09:59)
[2019-07-03] MEDS ORDERED: ONDANSETRON 4MG/2ML VIAL (J2405) As Ordered ONE (09:59)
[2019-07-03] MEDS ORDERED: MIDAZOLAM INJ 2 MG/2 ML VIAL (J2250) As Ordered ONE (09:59)
--- NOTE | 2019-07-03 10:30 | ECGEPIP ---
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
[2019-07-03 12:00] VITALS: BP 115/57
--- NOTE | 2019-07-03 12:12 | IPNPDOC ---
Subjective Date Seen The patient was seen on 07/03/19. Subjective Chief Complaint/HPI Patient seen and examined the bedside. No acute overnight events noted. She is tentatively scheduled to have a pacemaker placed by cardiology today. Objective Physical Examination General Exam: Positive: Alert, Cooperative, No Acute Distress ENT Exam: Positive: Atraumatic, Mucous membr. moist/pink Neck Exam: Negative: JVD Chest Exam: Positive: Clear to auscultation, Normal air movement Heart Exam: Positive: Bradycardic, Irregular Rhythm, Normal S1, Normal S2 Abdomen Exam: Positive: Soft; Negative: Tenderness Extremity Exam: Negative: Tenderness Psych Exam: Positive: Oriented x 3 Assessment /Plan Plan/VTE VTE Prophylaxis Ordered?: Yes Plan Bradycardia 2/2 High Degree AV Block Cardiology on board --planned for a pacemaker placement today Chronic Kidney Disease Stage IIIB Serum Cr at baseline Hypercalcemia of unclear etiology Continue calcitonin s/p IV fluid hydration Patient, family counseled at length regarding possible differential diagnoses including possible underlying malignancy. They have verbalized understanding of the same, and understand the need to follow up as an outpatient for further malignancy workup, including an EUS to be done for further evaluation of chronic pancreatitis. Chronic pancreatitis Patient denies any complaints of abdominal pain at this time Diastolic congestive heart failure, not decompensated History of atrial fibrillation Xarelto on hold for possible pacemaker placement GERD Cont PPI Hypothyroidism Cont Levothyroxine TSH noted to be elevated, will f/u Free T4 wnl F/U TFT's in 6-8 wks DVT Prophylaxis SCDs/TEDs VS, I&O, 24H, Fishbone Vital Signs/I&O Vital Signs Date Time Temp Pulse Resp B/P (MAP) Pulse Ox O2 Delivery O2 Flow Rate FiO2 07/03/19 08:00 97.6 38 22 122/67 (85) 07/03/19 04:00 97 06/30/19 15:26 Room Air I&O- Last 24 Hours up to 6 AM 07/03/19 06:00 Intake Total 450 ml Output Total 250 ml Balance 200 ml Laboratory Data 24H LABS Laboratory Tests 2 07/03/19 04:44: Nucleated Red Blood Cells % (auto) 0.0, Prothrombin Time 14.4H, Prothromb Time International Ratio 1.15, Anion Gap 6L, Glomerular Filtration Rate 36.8L, Blood Urea Nitrogen 15, Creatinine 1.46H, Sodium Level 137, Potassium Level 4.0, Chloride Level 107, Carbon Dioxide Level 24, Calcium Level 9.6 CBC/BMP Laboratory Tests 07/03/19 04:44 Red Blood Count 3.41 L, Mean Corpuscular Volume 99.4 H, Mean Corpuscular Hemoglobin 32.3, Mean Corpuscular Hemoglobin Concent 32.4, Red Cell Distribution Width 14.0, Calcium Level 9.6 ADAMARIS SERRANO MD Jul 03, 2019 12:12
--- NOTE | 2019-07-03 14:50 | ECHO ---
DATE OF SERVICE: 07/01/2019 PATIENT LOCATION: [id number] REFERRING PROVIDER: Dr. Chuy Ramirez REASON FOR ECHOCARDIOGRAM: Cardiac arrhythmias. 2D MEASUREMENTS: IVS: 1.1 cm LV: 4.0 cm LVPW: 0.9 cm LA: 4.5 cm Aorta: 2.8 cm IVC: 1.7 cm DOPPLER MEASUREMENTS: Peak velocity across the aortic valve: 2.0 m/s Peak velocity across the LVOT: 0.69 m/s Peak gradient across the aortic valve: 15 mmHg Mean gradient across the aortic valve: 8 mmHg Mitral E: 1.2 Maximum tricuspid valve velocity: 3.2 m/s 2D COMMENTS: 1. Normal left ventricular size and wall thickness, but with a mildly depressed global left ventricular systolic function. The anterior septum appeared to be both dyskinetic and hypokinetic. The estimated global left ventricular systolic ejection fraction is 45-50%. 2. Mildly enlarged left atrium. Normal right ventricle. Mildly dilated right atrium. 3. Normal aortic root. 4. No pericardial effusion seen. 5. Moderately calcified aortic valve with normal leaflet excursion. Mildly calcified mitral annulus with normal anterior mitral valve leaflet motion. Normal tricuspid valve and pulmonic valve. The proximal pulmonary artery branches were not well visualized. 6. The inferior vena cava is normal in size, central venous pressure is most likely normal. Doppler, it detects mild aortic regurgitation, moderately severe mitral regurgitation, and moderately severe tricuspid regurgitation. The calculated pulmonary artery systolic pressure varies between 40 to 50 mmHg. Assessment of the left ventricular diastolic function was limited. Trace pulmonic regurgitation also detected. IMPRESSION: 1. Mild global left ventricular systolic dysfunction with regional wall motion abnormalities. Assessment of the left ventricular diastolic function was limited. 2. Aortic valve sclerosis with mild aortic regurgitation and mild aortic stenosis. 3. Mitral annulus calcification with dilated left atrium and moderately severe mitral regurgitation. 4. Moderately severe tricuspid regurgitation with moderate pulmonary hypertension and mildly dilated right atrium.
[2019-07-03] MEDS ORDERED: ceFAZolin 2 GM/D5W 50 ML IV BAG (J0690 PER 500MG) As Ordered ONE (15:12)
[2019-07-03] MEDS ORDERED: LIDOCAINE 1% SDV INJ 30 ML VIAL As Ordered ONE (15:18)
[2019-07-03] MEDS ORDERED: BACITRACIN PWD 50,000 UNITS VIAL As Ordered ONE (15:19)
[2019-07-03] MEDS ORDERED: ISOVUE-300 61% 50ML VIAL (Q9967) As Ordered ONE (15:19)
--- NOTE | 2019-07-03 16:41 | ECGEPIP ---
[facility] Test Date: 2019-07-03 Pat Name: AYAN KOVACS Department: Room: M1472-33 Gender: Female Clinical Data Assistant: DARSHANA : 1940 Requested By: Loco Joy Order Number: [id number] Reading MD: Junito Lopez Measurements Intervals [place] Rate: 63 P: TN: 0 QRS: 89 QRSD: 182 T: -52 QT: 489 QTc: 502 Interpretive Statements Atrial fibrillation Predominantly paced ventricular complexes Compared to prior tracing of earlier this date, pacemaker activity is new Electronically Signed on 07-03-2019 16:41:02 EDT by Junito Lopez
[2019-07-03] MEDS ORDERED: ONDANSETRON 4MG/2ML VIAL (J2405) IV PRN (16:45)
--- NOTE | 2019-07-03 16:59 | RO ---
DATE OF PROCEDURE: 07/03/2019 IMPLANTING JET HANDLER: Dr. Loco Joy TITLE OF PROCEDURE: Implantation of permanent ventricular demand pacemaker. ANESTHESIOLOGIST: Dr. Garza PREOPERATIVE DIAGNOSES: 1. Complete heart block. 2. Chronic atrial fibrillation. POSTOPERATIVE DIAGNOSES: 1. Complete heart block. 2. Chronic atrial fibrillation. TYPE OF ANESTHESIA: Monitored local anesthesia. DESCRIPTION OF PROCEDURE: In the fasting state, following informed consent, and Ancef 2 grams IV premedication, the patient was taken to the operating theater. Numerous skin electrodes were applied to facilitate continuous electrocardiographic monitoring. Self-adhesive cardioverting/defibrillating/pacing patches were applied in an anteroposterior configuration and connected to a bedside cardioverter defibrillator/noninvasive pacing system. The left subclavian region was prepped and draped in the usual fashion and the skin was infiltrated with 1% Xylocaine. The left axillary vein was catheterized using the micropuncture technique and a 5 cm linear incision was made several centimeters below and parallel to the left clavicle. Dissection was carried down to the level the pectoralis fascia and a pocket was fashioned below the level of the incision line. Single bipolar screw-in active fixation steroid eluting pacing lead was then positioned to the distal right ventricular septum under EKG and fluoroscopic control. The ventricular lead ([employer], model number [id number], serial number [id number]) measurements were: Stimulation threshold 0.7 V/ 0.4 mms/impedance 548 ohms. The R wave amplitude measured 6.1 mV. This lead was secured in position with a sleeve sutured at the insertion site. It was then connected to a single chamber pulse generator ([employer] [facility], model number [id number], serial number [id number]) and appropriate VVI pacing was documented. The rate responsive feature of this device has been activated. The pulse generator was placed in the pocket and was secured in position with a suture through the right upper hand corner of the epoxy header. The subcutaneous tissues were approximated using a running chromic suture and the skin was closed using candice. Dry dressing was applied. The patient was returned to the recovery room in good condition. No apparent complications. Estimated blood loss less than 10 mL. MTDD
[2019-07-03 17:08] VITALS: BP 114/57
[2019-07-03] MEDS: ACETAMINOPHEN TAB 650MG DOSE (2X325MG) PO PRN ×2 (17:58→22:01)
--- NOTE | 2019-07-03 19:27 | REP ---
REASON: Status post pacemaker placement. COMPARISON: 06/30/2019. There is a single chamber bipolar pacemaker device which has been placed since the last exam. The lead is appropriate and contiguous. There is mild cardiomegaly accentuated by technique. The lung ho are clear and unchanged from the prior exam. There is no change in the osseous structures. IMPRESSION: Status post pacemaker insertion as described above. Electronically Signed by Skyler Sosa DO 07/04/2019 10:02 A
[2019-07-03 20:00] VITALS: BP 132/63
[2019-07-03] MEDS: ceFAZolin SOD 1 GM in D5W MINI-BAG PLUS 50 ML IV SCH (22:00)
[2019-07-04] VITALS: BP 118/56
[2019-07-04] MEDS: ACETAMINOPHEN TAB 650MG DOSE (2X325MG) PO PRN ×3 (03:00→13:15)
[2019-07-04 04:00] VITALS: BP 145/66
[2019-07-04 04:11] LABS: HEMATOCRIT 32.8 % (36.0-47.0); HEMOGLOBIN 10.6 g/dl (12.0-15.5); MEAN CORPUSCULAR HEMOGLOBIN 31.4 pg (27.0-33.0); MEAN CORPUSCULAR HGB CONC 32.3 g/dl (32.0-36.5); PLATELET COUNT, AUTOMATED 304 10^3/uL (150-450); RED BLOOD COUNT 3.38 10^6/uL (4.00-5.40); WHITE BLOOD COUNT 7.3 10^3/uL (4.0-10.0)
[2019-07-04 04:29] LABS: CALCIUM LEVEL 8.8 MG/DL (8.8-10.2); CREATININE FOR GFR 1.45 MG/DL (0.55-1.30); GLOMERULAR FILTRATION RATE 37.1 (>39)
[2019-07-04] MEDS: LEVOTHYROXINE 25MCG TABLET (0.025MG) PO SCH (06:11)
[2019-07-04] MEDS: ceFAZolin SOD 1 GM in D5W MINI-BAG PLUS 50 ML IV SCH ×2 (06:11→13:10)
[2019-07-04 07:37] VITALS: BP 141/67
--- NOTE | 2019-07-04 08:35 | ECGEPIP ---
[facility] Test Date: 2019-07-04 Pat Name: AYAN KOVACS Department: Room: S1198-58 Gender: Female Transportation Job Titles: DARSHANA : 1940 Requested By: Loco Joy Order Number: [id number] Reading MD: Junito Lopez Measurements Intervals [place] Rate: 60 P: VA: 0 QRS: 84 QRSD: 190 T: -43 QT: 514 QTc: 514 Interpretive Statements Atrial fibrillation with paced ventricular complexes No significant change when compared to prior tracing of 07/03/2019 Electronically Signed on 07-04-2019 8:35:13 EDT by Junito Lopez
[2019-07-04] MEDS: OMEPRAZOLE 20 MG CAP PO SCH (08:44)
[2019-07-04] MEDS: CALCITONIN NASAL SPRAY 3.7 ML BTL SCH ×2 (08:44→08:45)
[2019-07-04] MEDS: VITAMIN D 1,000 INTERNATIONAL UNITS TABLET PO SCH (08:44)
--- NOTE | 2019-07-04 10:20 | REP ---
HISTORY: Followup. COMPARISON: Yesterday, 07/03/2019. The heart is enlarged. There is a single chamber bipolar pacemaker device, status quo. The lung ho are clear and stable. No acute patchy parenchymal opacities or pleural effusions have developed. There are chronic changes seen involving the imaged spine. IMPRESSION: Cardiomegaly and pacemaker device as described above. There is no evidence of acute cardiopulmonary disease. Electronically Signed by Skyler Sosa DO 07/04/2019 10:22 A
--- NOTE | 2019-07-04 13:50 | DS.PDOC ---
Discharge Summary General Date of Admission Jun 30, 2019 at 18:15 Date of Discharge 07/04/19 Specialist/Consultants Involve Dr. Joy of Cardiology Discharge Summary PROCEDURES PERFORMED DURING STAY: Pacemaker placement by Dr. Joy on 07/03 ADMITTING/DISCHARGE DIAGNOSES: Complete Heart Block s/p Pacemaker implantation Hx of Afib COMPLICATIONS/CHIEF COMPLAINT: Bradycardia. HISTORY OF PRESENT ILLNESS: . 78-year-old female with past medical history of hypertension, hypothyroidism, atrial fibrillation on xarelto, osteoporosis, chronic pancreatitis, and diastolic congestive heart failure presented to the ER with the chief complaint of lightheadedness, dizziness of sudden onset. She states that she was feeling well up until after she took her medications this afternoon. She denied any complaints of chest pain, palpitations, abdominal pain, or any nausea/vomiting/diarrhea. In addition, the patient denied any recent tick exposure. In the ER, patient was noted to be in atrial fibrillation with slow ventricular response with a heart rate in the 40s. The patient was admitted to the hospitalist service for further evaluation and management. Bradycardia 2/2 Complete Heart Block s/p pacemaker placement on 07/03 Follow up with Cardiology as outpatient Chronic Kidney Disease Stage IIIB Serum Cr at baseline Hypercalcemia of unclear etiology Continue calcitonin s/p IV fluid hydration Patient, family counseled at length regarding possible differential diagnoses including possible underlying malignancy. They have verbalized understanding of the same, and understand the need to follow up as an outpatient for further malignancy workup, including an EUS to be done for further evaluation of chronic pancreatitis. Chronic pancreatitis Patient denies any complaints of abdominal pain at this time Diastolic congestive heart failure, not decompensated History of atrial fibrillation Cont Xarelto as per Cardio DISCHARGE MEDICATIONS: Please see below. ALLERGIES: Please see below. PHYSICAL EXAMINATION ON DISCHARGE: VITAL SIGNS: Please see below. General Exam: Positive: Alert, Cooperative, No Acute Distress ENT Exam: Positive: Atraumatic, Mucous membr. moist/pink Neck Exam: Negative: JVD Chest Exam: Positive: Clear to auscultation, Normal air movement Heart Exam: Positive: Normal Rate, Normal S1, Normal S2 Abdomen Exam: Positive: Soft; Negative: Tenderness Extremity Exam: Negative: Tenderness Psych Exam: Positive: Oriented x 3 LABORATORY DATA: Please see below. IMAGING: CHEST, SINGLE VIEW: Single view of the chest was performed. There is mild cardiomegaly. There is no acute infiltrate. There is calcification of the thoracic aorta. IMPRESSION: No acute infiltrate. Mild cardiomegaly. REASON: Status post pacemaker placement. COMPARISON: 06/30/2019. There is a single chamber bipolar pacemaker device which has been placed since the last exam. The lead is appropriate and contiguous. There is mild cardiomegaly accentuated by technique. The lung ho are clear and unchanged from the prior exam. There is no change in the osseous structures. IMPRESSION: Status post pacemaker insertion as described above. HISTORY: Followup. COMPARISON: Yesterday, 07/03/2019. The heart is enlarged. There is a single chamber bipolar pacemaker device, status quo. The lung ho are clear and stable. No acute patchy parenchymal opacities or pleural effusions have developed. There are chronic changes seen involving the imaged spine. IMPRESSION: Cardiomegaly and pacemaker device as described above. There is no evidence of acute cardiopulmonary disease. PROGNOSIS: Fair ACTIVITY: As tolerated. DIET: 2 g low sodium diet DISCHARGE PLAN: DISPOSITION: . Home DISCHARGE INSTRUCTIONS: Follow-up with primary care physician within 7 days. Follow-up with cardiology within 2-4 weeks. Follow-up outpatient for hypercalcemic workup. Return to the ER for any acute emergencies. DISCHARGE CONDITION: Stable. TIME SPENT ON DISCHARGE: Greater than 30 minutes. Vital Signs/I&Os Vital Signs Date Time Temp Pulse Resp B/P (MAP) Pulse Ox O2 Delivery O2 Flow Rate FiO2 07/04/19 07:37 96.9 60 16 141/67 (91) 97 06/30/19 15:26 Room Air I&O- Last 24 Hours up to 6 AM 07/04/19 06:00 Intake Total 1590 ml Output Total 485 ml Balance 1105 ml Laboratory Data Labs 24H Laboratory Tests 2 07/04/19 03:20: Nucleated Red Blood Cells % (auto) 0.0 07/04/19 03:21: Anion Gap 6L, Glomerular Filtration Rate 37.1L, Blood Urea Nitrogen 16, Creatinine 1.45H, Sodium Level 135L, Potassium Level 4.0, Chloride Level 105, Carbon Dioxide Level 24, Calcium Level 8.8 CBC/BMP Laboratory Tests 07/04/19 03:20 Red Blood Count 3.38 L, Mean Corpuscular Volume 97.0 H, Mean Corpuscular Hemoglobin 31.4, Mean Corpuscular Hemoglobin Concent 32.3, Red Cell Distribution Width 14.0 07/04/19 03:21 Calcium Level 8.8 Discharge Medications Scheduled Calcitonin [place] (Calcitonin-[place]) 3.7 Ml [place].pump, 1 SPRAY NA DAILY, (Reported) ALTERNATES NOSTRILS, RIGHT NOSTRIL 06/29 Cholecalciferol (Vitamin D3) (Vitamin D3) 2,000 Unit Cap, 2,000 UNIT PO DAILY, (Reported) Hydralazine HCl (Hydralazine HCl) 10 Mg Tablet, 10 MG PO TID, (Reported) Levothyroxine Sodium (Levothyroxine Sodium) 25 Mcg Tab, 25 MCG PO DAILY, (Reported) Omeprazole (Omeprazole) 40 Mg Cap, 40 MG PO DAILY, (Reported) Potassium Chloride (Potassium Chloride) 10 Meq Tab.er.prt, 10 MEQ PO BID, (Reported) Rivaroxaban (Xarelto) 15 Mg Tab, 15 MG PO DAILY, (Reported) Spironolactone (Spironolactone) 25 Mg Tab, 25 MG PO DAILY, (Reported) Torsemide (Torsemide) 10 Mg Tablet, 10 MG PO DAILY, (Reported) Allergies Coded Allergies: No Known Allergies (Unverified , 06/03/19) ADAMARIS SERRANO MD Jul 04, 2019 13:50
--- NOTE | 2019-07-04 22:26 | IPN ---
DATE: 07/04/2019 CARDIOLOGY PROGRESS SUBJECTIVE: The patient has been up in the room without lightheadedness. Continues to have minor incisional discomfort, but remains free of any awareness of her heart action, dizziness or shortness of breath. Is anxious to go home. OBJECTIVE: Pleasant, overweight, elderly lady laying comfortably with the head of the bed elevated 30 degrees. No pallor or cyanosis. Heart rate 60 beats per minute and regular, blood pressure 140/67, heart rate 16, O2 saturation 97%, afebrile. Weight 183 pounds, height 63 inches, BMI 32.5. Trachea midline. Neck veins did not appear to be elevated. Increased anteroposterior chest diameter with relaxed respiratory excursion. Her pacemaker incision appears to be healing well with only minor erythema, no swelling. Her dressing was changed. Minimal distal lower leg pitting. 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 EKG: Tracing reviewed independently from this morning shows underlying atrial fibrillation with consistent ventricular pacing at 60 bpm. Paced QRS complexes with normal axis and LVEDP configuration in keeping with distal right ventricular septal stimulation. No change from the previous day. Chest x-ray: PA left lateral study performed earlier today was reviewed independently and shows ongoing obvious cardiomegaly with slightly prominent pulmonary vasculature and accentuated interstitial markings, but no pleural effusion. A tortuous thoracic aorta with some calcification aortic arch with single chamber pacemaker pulse generator left subclavian region and pacing lead terminating in the distal right ventricular septum. No pneumothorax. No pleural effusion. Blood work: Hemoglobin today was 10.6 with a normal white blood cell count and platelet count. Electrolytes were imbalance with BUN 16, creatinine 1.45 essentially stable from yesterday. Fasting glucose 78. IMPRESSION/PLAN: 1. Complete heart block/single chamber pacemaker in situ: Her device appears to be functioning appropriately. Intracardiac electrograms showed excellent pacing threshold, but no spontaneous ventricular activity. Her incision is healing well and her chest x-ray confirms stable lead position. EKG monitoring shows appropriate device function. Program changes were made today to improve long-term longevity, current estimated battery life 12 years. I have encouraged her to avoid getting her dressing wet and to perform only light activities of daily living with her left arm until she is seen in our office in 7-10 days for a wound check and staple removal. 2. Chronic atrial fibrillation: As mentioned, has no spontaneous ventricular activity. I believe it will be fine for her to resume oral anticoagulation July 05, 2019. 3. Abnormal electrocardiogram (EKG): Remains free of any sign or symptom of myocardial ischemia. 4. Hypertensive heart disease (benign with heart failure)/heart failure (chronic): Appears to be compensated at this time with adequately controlled blood pressure, renal function and electrolytes were stable. I believe she would safely tolerate being restarted on her customary metoprolol tartrate, hydralazine, torsemide, and spironolactone with KCl. 5. 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 No symptoms or signs of endocarditis. At this point, she can be discharged home with the instructions as discussed above. Her dietary measures should continue a modest salt intake restriction. She was encouraged to contact us should she notice any abnormal erythema, swelling or discharge from her incision. Following her wound check and staple removal in 7-10 days, she will be resuming her customary cardiology followup with Dr. Cordova.
== END 2019-07-04 14:26 | disposition home or self-care (01) | DRG 243 ==
LOC: M ED 15:25 → M ED INP 18:15 → M ICU 19:50
PROVIDERS: ADMIT Internal Medicine; ATTEND Internal Medicine
PROC: 0JH604Z Insertion of Pacemaker, Single Chamber into Chest Subcutaneous Tissue and Fascia, Open Approach (ICD-10-PCS; 2019-07-03)
PROC: 02HK3JZ Insertion of Pacemaker Lead into Right Ventricle, Percutaneous Approach (ICD-10-PCS; principal; 2019-07-03 10:00)
DX: I44.2 Atrioventricular block, complete (principal); I13.0 Hypertensive heart and chronic kidney disease with heart failure and stage 1 through stage 4 chronic kidney disease, or unspecified chronic kidney disease; I50.32 Chronic diastolic (congestive) heart failure; K86.1 Other chronic pancreatitis; N18.3 Chronic kidney disease, stage 3 (moderate); I48.2 Chronic atrial fibrillation; R00.1 Bradycardia, unspecified; E03.9 Hypothyroidism, unspecified; Z79.01 Long term (current) use of anticoagulants; M81.0 Age-related osteoporosis without current pathological fracture; E83.52 Hypercalcemia; Z79.899 Other long term (current) drug therapy; K21.9 Gastro-esophageal reflux disease without esophagitis; E66.9 Obesity, unspecified; H35.30 Unspecified macular degeneration; Z96.649 Presence of unspecified artificial hip joint; Z96.651 Presence of right artificial knee joint; Z96.652 Presence of left artificial knee joint; I08.0 Rheumatic disorders of both mitral and aortic valves